=== PATIENT | female | born 1985 | race Caucasian/White ===

== ENCOUNTER 2017-07-01 07:42 | Inpatient (IN) | payer BC ==
[2017-07-01] MEDS ORDERED: Sodium Chloride 0.9% 1,000 ML IV ONE (08:32)
[2017-07-01] MEDS ORDERED: HYDROmorphone 0.5 MG/0.5 ML Syringe IVPUSH ONE (08:32)
[2017-07-01] MEDS ORDERED: Metoclopramide 10 MG/2 ML SDV IVPUSH ONE (08:32)
--- NOTE | 2017-07-01 08:35 | EDM.PDOC ---
ED HPI GENERAL MEDICAL PROBLEM - General Chief Complaint: Gastrointestinal Problem Stated Complaint: VOMITING Time Seen by Provider: 07/01/17 08:32 Source of Information: Reports: Patient History Limitations: Reports: No Limitations - History of Present Illness INITIAL COMMENTS - FREE TEXT/NARRATIVE: 31-year-old female presents the ED with reported diffuse upper abdominal pain primarily epigastric and right upper quadrant. She states she felt it coming on yesterday. Has been diagnosed with gastroparesis secondary to insulin- dependent diabetes. Previous investigations opf her gallbladder have been negative. She started vomiting during the night and continues to vomit here in the ED. Emesis is mostly clear but does have a slight biliary tinged. There is no he met emesis. She also comments that she's been having loose stools almost every time she vomits small quantities again no blood. No associated fever but does get chills with vomiting. She has not taken her insulin yet this morning. She did not hardly eat or drink much at all yesterday and of course can't keep anything down today. She is dizzy lightheaded with walking and standing. Onset: Gradual (started feeling ill yesterday but did not vomit until early hours of this morning.) Onset Date: 06/30/17 Duration: Hour(s): Location: Reports: Abdomen Quality: Reports: Ache, Pressure, Other Severity: Moderate Improves with: Reports: None Worsens with: Reports: Eating (were trying to drink) Context: Denies: Activity, Exercise, Lifting, Sick Contact, Trauma, Other Associated Symptoms: Reports: Fever/Chills, Nausea/Vomiting (chills with vomiting.), Weakness (generalized with lightheadedness and dizziness.). Denies : No Other Symptoms, Confusion, Chest Pain, Cough, cough w sputum, Diaphoresis, Headaches, Loss of Appetite, Malaise, Rash (intractable for the last 8 hours), Seizure, Shortness of Breath, Syncope Treatments ENVIRONMENTAL HEALTH TECHNICIAN: Reports: Other (see below) (none.) Upper Abdomen Pain Score (Numeric/FACES): 7 - Related Data Allergies Allergy/AdvReac Type Severity Reaction Status Date / Time Penicillins Allergy Cannot Verified 07/01/17 15:29 Remember Home Meds: Home Meds Insulin Aspart [Novolog] 1 - 10 unit SQ TID 07/01/17 [History] Insulin Glargine,Hum.Rec.Anlog [Toujeo Solostar] 6 units SUBCUT DAILY 07/01/17 [ History] Past Medical History Other HEENT History: wear glasses Endocrine/Metabolic History: Reports: Diabetes, Type I (insulin-dependent diabetic for 20 years.) - Past Surgical History GI Surgical History: Reports: Appendectomy Other GI Surgeries/Procedures: gastroparesis Social & Family History - Tobacco Use Smoking Status *Q: Current Every Day Smoker Years of Tobacco use: 1 Packs/Tins Daily: 1 - Caffeine Use Caffeine Use: Reports: Coffee - Recreational Drug Use Recreational Drug Use: No ED ROS GENERAL - Review of Systems Review Of Systems: See Below Constitutional: Reports: Chills, Malaise, Weakness, Fatigue, Decreased Appetite. Denies: Fever HEENT: Reports: No Symptoms Respiratory: Reports: No Symptoms Cardiovascular: Reports: No Symptoms Endocrine: Reports: Fatigue GI/Abdominal: Reports: Abdominal Pain, Diarrhea, Decreased Appetite (see history present illness), Nausea, Vomiting. Denies: Hematemesis, Hematochezia, Stool Incontinence : Reports: No Symptoms Musculoskeletal: Reports: No Symptoms Skin: Reports: Pallor Neurological: Reports: Dizziness Psychiatric: Reports: No Symptoms Hematologic/Lymphatic: Reports: No Symptoms Immunologic: Reports: No Symptoms ED EXAM, GI/ABD - Physical Exam Exam: See Below Exam Limited By: No Limitations General Appearance: Anxious (saliva and clear. Slight biliary tinge no blood.), Moderate Distress (acute onset of nausea and vomiting while in the examining room. Emesis produced was mostly ) Eyes: Bilateral: Normal Appearance Throat/Mouth: Other Head: Atraumatic, Normocephalic (tongue is dry and coated) Neck: Normal Inspection, Supple, Non-Tender, Full Range of Motion. No: Lymphadenopathy (L), Lymphadenopathy (R) Respiratory/Chest: Lungs Clear (mild tachypnea at rest.), Normal Breath Sounds, No Accessory Muscle Use, Chest Non-Tender, Respiratory Distress Cardiovascular: Normal Peripheral Pulses, Regular Rate, Rhythm, No Edema, No Gallop, No Murmur, No Rub GI/Abdominal Exam: Normal Bowel Sounds, Soft, No Distention, Guarding, Tender ( very hypoactive bowel sounds throughout.epigastrium and right upper quadrant with a positive Anderson sign.), Abnormal Bowel Sounds Back Exam: Normal Inspection, Full Range of Motion. No: CVA Tenderness (L), CVA Tenderness (R) Extremities: Normal Inspection, Normal Range of Motion, Non-Tender, No Pedal Edema Neurological: Alert, Oriented, CN II-XII Intact, Normal Cognition Psychiatric: Normal Affect, Normal Mood Skin Exam: Warm, Dry, Intact, Normal Color, No Rash Course - Vital Signs Last Recorded V/S: Last Vital Signs Temp 36.4 C 07/01/17 14:55 Pulse 80 07/01/17 15:12 Resp 13 07/01/17 15:12 BP 140/80 07/01/17 15:12 Pulse Ox 100 07/01/17 15:40 - Orders/Labs/Meds Orders: Active Orders 24 hr Category Date Time Status Blood Glucose Check, Bedside [RC] ONETIME Care 07/01/17 09:04 Active CULTURE URINE [RM] Stat Lab 07/01/17 09:25 Received Medication Orders Acetaminophen (Tylenol) 650 mg PO Q4H PRN PRN Reason: Pain (Mild 1-3)/fever Hydrocodone Bitart/Acetaminophen (Laurel 325-5 Mg) 1 tab PO Q4H PRN PRN Reason: Pain (moderate 4-6) Albuterol/Ipratropium (Duoneb 3.0-0.5 Mg/3 Ml) 3 ml NEB Q4H PRN PRN Reason: Shortness Of Breath/wheezing Dextrose/Water (Dextrose 50% In Water) 50 ml IVPUSH ASDIRECTED PRN PRN Reason: Hypoglycemia Sodium Chloride (Normal Saline) 1,000 mls @ 999 mls/hr IV ASDIRECTED NAHID Insulin Aspart (Novolog) 0 unit SUBCUT QIDACANDBED NAHID PRN Reason: Protocol Last Admin: 07/01/17 17:35 Dose: 2 unit Admin: 07/01/17 16:18 Dose: Insulin Detemir (Levemir) 6 unit SUBCUT DAILY [facility] Miscellaneous Information (Remove Patch) 1 ea TRDERM DAILY NAH[facility] Nicotine (Habitrol) 21 mg TRDERM DAILY [facility] Promethazine HCl (Phenergan) 12.5 mg IM Q6H PRN PRN Reason: Nausea/Vomiting Temazepam (Restoril) 7.5 mg PO BEDTIME PRN PRN Reason: Sleep Labs: Laboratory Tests 07/01/17 07/01/17 07/01/17 Range/Units 08:05 08:40 08:40 WBC 12.43 H (3.98-10.04) K/mm3 RBC 5.09 (3.98-5.22) M/mm3 Hgb 15.4 (11.2-15.7) gm/L Hct 44.9 (34.1-44.9) % MCV 88.2 (79.4-94.8) fl MCH 30.3 (25.6-32.2) pg MCHC 34.3 (32.2-35.5) g/dl RDW Std Deviation 45.1 (36.4-46.3) fL Plt Count 376 H (182-369) K/mm3 MPV 9.6 (9.4-12.3) fl Neutrophils % (Manual) 79 H (40-60) % Band Neutrophils % 0 (0-10) % Lymphocytes % (Manual) 18 L (20-40) % Atypical Lymphs % 0 % Monocytes % (Manual) 0 L (2-10) % Eosinophils % (Manual) 2 (0.7-5.8) % Basophils % (Manual) 1 (0.1-1.2) Platelet Estimate Adequate Plt Morphology Comment Normal RBC Morph Comment Normal Sodium 139 (136-145) mEq/L Potassium 3.9 (3.5-5.1) mEq/L Chloride 102 (98-107) mEq/L Carbon Dioxide 18 L (21-32) mEq/L Anion Gap 22.9 H (5-15) BUN 6 L (7-18) mg/dL Creatinine 0.8 (0.55-1.02) mg/dL Est Cr Clr Drug Dosing 93.63 mL/min Estimated GFR (MDRD) > 60 (>60) mL/min BUN/Creatinine Ratio 7.5 L (14-18) Glucose 204 H (74-106) mg/dL POC Glucose 147 H (70-105) mg/dL Calcium 10.1 (8.5-10.1) mg/dL Magnesium 1.8 (1.8-2.4) mg/dl Total Bilirubin 0.8 (0.2-1.0) mg/dL AST 78 H (15-37) U/L ALT 96 H (14-59) U/L Alkaline Phosphatase 58 (46-116) U/L C-Reactive Protein (<1.0) mg/dL Total Protein 8.4 H (6.4-8.2) g/dl Albumin 4.5 (3.4-5.0) g/dl Globulin 3.9 gm/dL Albumin/Globulin Ratio 1.2 (1-2) Lipase 72 L (73-393) U/L HCG, Qual (NEGATIVE) Urine Color (Yellow) Urine Appearance (Clear) Urine pH (5.0-8.0) Ur Specific Termo (1.005-1.030) Urine Protein (Negative) Urine Glucose (UA) (Negative) Urine Ketones (Negative) Urine Occult Blood (Negative) Urine Nitrite (Negative) Urine Bilirubin (Negative) Urine Urobilinogen (0.2-1.0) Ur Leukocyte Esterase (Negative) Urine RBC (0-5) /hpf Urine WBC (0-5) /hpf Ur Epithelial Cells (0-5) /hpf Amorphous Sediment (NOT SEEN) /hpf Urine Bacteria (FEW) /hpf Urine Mucus (FEW) /hpf Urine Opiates Screen (NEGATIVE) Ur Buprenorphine Scrn (NEGATIVE) Ur Oxycodone Screen (NEGATIVE) Urine Methadone Screen (NEGATIVE) Ur Propoxyphene Screen (NEGATIVE) Ur Barbiturates Screen (NEGATIVE) Ur Tricyclics Screen (NEGATIVE) Ur Phencyclidine Scrn (NEGATIVE) Ur Amphetamine Screen (NEGATIVE) U Methamphetamines Scrn (NEGATIVE) U Benzodiazepines Scrn (NEGATIVE) U Cocaine Metab Screen (NEGATIVE) U Marijuana (THC) Screen (NEGATIVE) Ketones (0.0-0.3) mM 07/01/17 07/01/17 07/01/17 Range/Units 08:40 08:40 08:40 WBC (3.98-10.04) K/mm3 RBC (3.98-5.22) M/mm3 Hgb (11.2-15.7) gm/L Hct (34.1-44.9) % MCV (79.4-94.8) fl MCH (25.6-32.2) pg MCHC (32.2-35.5) g/dl RDW Std Deviation (36.4-46.3) fL Plt Count (182-369) K/mm3 MPV (9.4-12.3) fl Neutrophils % (Manual) (40-60) % Band Neutrophils % (0-10) % Lymphocytes % (Manual) (20-40) % Atypical Lymphs % % Monocytes % (Manual) (2-10) % Eosinophils % (Manual) (0.7-5.8) % Basophils % (Manual) (0.1-1.2) Platelet Estimate Plt Morphology Comment RBC Morph Comment Sodium (136-145) mEq/L Potassium (3.5-5.1) mEq/L Chloride (98-107) mEq/L Carbon Dioxide (21-32) mEq/L Anion Gap (5-15) BUN (7-18) mg/dL Creatinine (0.55-1.02) mg/dL Est Cr Clr Drug Dosing mL/min Estimated GFR (MDRD) (>60) mL/min BUN/Creatinine Ratio (14-18) Glucose (74-106) mg/dL POC Glucose (70-105) mg/dL Calcium (8.5-10.1) mg/dL Magnesium (1.8-2.4) mg/dl Total Bilirubin (0.2-1.0) mg/dL AST (15-37) U/L ALT (14-59) U/L Alkaline Phosphatase (46-116) U/L C-Reactive Protein < 0.2 (<1.0) mg/dL Total Protein (6.4-8.2) g/dl Albumin (3.4-5.0) g/dl Globulin gm/dL Albumin/Globulin Ratio (1-2) Lipase (73-393) U/L HCG, Qual Negative (NEGATIVE) Urine Color (Yellow) Urine Appearance (Clear) Urine pH (5.0-8.0) Ur Specific Termo (1.005-1.030) Urine Protein (Negative) Urine Glucose (UA) (Negative) Urine Ketones (Negative) Urine Occult Blood (Negative) Urine Nitrite (Negative) Urine Bilirubin (Negative) Urine Urobilinogen (0.2-1.0) Ur Leukocyte Esterase (Negative) Urine RBC (0-5) /hpf Urine WBC (0-5) /hpf Ur Epithelial Cells (0-5) /hpf Amorphous Sediment (NOT SEEN) /hpf Urine Bacteria (FEW) /hpf Urine Mucus (FEW) /hpf Urine Opiates Screen (NEGATIVE) Ur Buprenorphine Scrn (NEGATIVE) Ur Oxycodone Screen (NEGATIVE) Urine Methadone Screen (NEGATIVE) Ur Propoxyphene Screen (NEGATIVE) Ur Barbiturates Screen (NEGATIVE) Ur Tricyclics Screen (NEGATIVE) Ur Phencyclidine Scrn (NEGATIVE) Ur Amphetamine Screen (NEGATIVE) U Methamphetamines Scrn (NEGATIVE) U Benzodiazepines Scrn (NEGATIVE) U Cocaine Metab Screen (NEGATIVE) U Marijuana (THC) Screen (NEGATIVE) Ketones 2.7 (0.0-0.3) mM 07/01/17 07/01/17 07/01/17 Range/Units 09:25 09:45 11:43 WBC (3.98-10.04) K/mm3 RBC (3.98-5.22) M/mm3 Hgb (11.2-15.7) gm/L Hct (34.1-44.9) % MCV (79.4-94.8) fl MCH (25.6-32.2) pg MCHC (32.2-35.5) g/dl RDW Std Deviation (36.4-46.3) fL Plt Count (182-369) K/mm3 MPV (9.4-12.3) fl Neutrophils % (Manual) (40-60) % Band Neutrophils % (0-10) % Lymphocytes % (Manual) (20-40) % Atypical Lymphs % % Monocytes % (Manual) (2-10) % Eosinophils % (Manual) (0.7-5.8) % Basophils % (Manual) (0.1-1.2) Platelet Estimate Plt Morphology Comment RBC Morph Comment Sodium (136-145) mEq/L Potassium (3.5-5.1) mEq/L Chloride (98-107) mEq/L Carbon Dioxide (21-32) mEq/L Anion Gap (5-15) BUN (7-18) mg/dL Creatinine (0.55-1.02) mg/dL Est Cr Clr Drug Dosing mL/min Estimated GFR (MDRD) (>60) mL/min BUN/Creatinine Ratio (14-18) Glucose (74-106) mg/dL POC Glucose 193 H (70-105) mg/dL Calcium (8.5-10.1) mg/dL Magnesium (1.8-2.4) mg/dl Total Bilirubin (0.2-1.0) mg/dL AST (15-37) U/L ALT (14-59) U/L Alkaline Phosphatase (46-116) U/L C-Reactive Protein (<1.0) mg/dL Total Protein (6.4-8.2) g/dl Albumin (3.4-5.0) g/dl Globulin gm/dL Albumin/Globulin Ratio (1-2) Lipase (73-393) U/L HCG, Qual (NEGATIVE) Urine Color Dark yellow (Yellow) Urine Appearance Turbid H (Clear) Urine pH 6.0 (5.0-8.0) Ur Specific Termo > or = 1.030 (1.005-1.030) Urine Protein 1+ H (Negative) Urine Glucose (UA) Negative (Negative) Urine Ketones 3+ H (Negative) Urine Occult Blood Trace-intact H (Negative) Urine Nitrite Negative (Negative) Urine Bilirubin 1+ H (Negative) Urine Urobilinogen 0.2 (0.2-1.0) Ur Leukocyte Esterase Negative (Negative) Urine RBC 0-5 (0-5) /hpf Urine WBC 5-10 H (0-5) /hpf Ur Epithelial Cells 50-75 H (0-5) /hpf Amorphous Sediment Few H (NOT SEEN) /hpf Urine Bacteria Many H (FEW) /hpf Urine Mucus Not seen (FEW) /hpf Urine Opiates Screen Negative (NEGATIVE) Ur Buprenorphine Scrn Negative (NEGATIVE) Ur Oxycodone Screen Negative (NEGATIVE) Urine Methadone Screen Negative (NEGATIVE) Ur Propoxyphene Screen Negative (NEGATIVE) Ur Barbiturates Screen Negative (NEGATIVE) Ur Tricyclics Screen Negative (NEGATIVE) Ur Phencyclidine Scrn Negative (NEGATIVE) Ur Amphetamine Screen Negative (NEGATIVE) U Methamphetamines Scrn Negative (NEGATIVE) U Benzodiazepines Scrn Negative (NEGATIVE) U Cocaine Metab Screen Negative (NEGATIVE) U Marijuana (THC) Screen Presumptive positive H (NEGATIVE) Ketones (0.0-0.3) mM 07/01/17 Range/Units 13:41 WBC (3.98-10.04) K/mm3 RBC (3.98-5.22) M/mm3 Hgb (11.2-15.7) gm/L Hct (34.1-44.9) % MCV (79.4-94.8) fl MCH (25.6-32.2) pg MCHC (32.2-35.5) g/dl RDW Std Deviation (36.4-46.3) fL Plt Count (182-369) K/mm3 MPV (9.4-12.3) fl Neutrophils % (Manual) (40-60) % Band Neutrophils % (0-10) % Lymphocytes % (Manual) (20-40) % Atypical Lymphs % % Monocytes % (Manual) (2-10) % Eosinophils % (Manual) (0.7-5.8) % Basophils % (Manual) (0.1-1.2) Platelet Estimate Plt Morphology Comment RBC Morph Comment Sodium (136-145) mEq/L Potassium (3.5-5.1) mEq/L Chloride (98-107) mEq/L Carbon Dioxide (21-32) mEq/L Anion Gap (5-15) BUN (7-18) mg/dL Creatinine (0.55-1.02) mg/dL Est Cr Clr Drug Dosing mL/min Estimated GFR (MDRD) (>60) mL/min BUN/Creatinine Ratio (14-18) Glucose (74-106) mg/dL POC Glucose 200 H (70-105) mg/dL Calcium (8.5-10.1) mg/dL Magnesium (1.8-2.4) mg/dl Total Bilirubin (0.2-1.0) mg/dL AST (15-37) U/L ALT (14-59) U/L Alkaline Phosphatase (46-116) U/L C-Reactive Protein (<1.0) mg/dL Total Protein (6.4-8.2) g/dl Albumin (3.4-5.0) g/dl Globulin gm/dL Albumin/Globulin Ratio (1-2) Lipase (73-393) U/L HCG, Qual (NEGATIVE) Urine Color (Yellow) Urine Appearance (Clear) Urine pH (5.0-8.0) Ur Specific Termo (1.005-1.030) Urine Protein (Negative) Urine Glucose (UA) (Negative) Urine Ketones (Negative) Urine Occult Blood (Negative) Urine Nitrite (Negative) Urine Bilirubin (Negative) Urine Urobilinogen (0.2-1.0) Ur Leukocyte Esterase (Negative) Urine RBC (0-5) /hpf Urine WBC (0-5) /hpf Ur Epithelial Cells (0-5) /hpf Amorphous Sediment (NOT SEEN) /hpf Urine Bacteria (FEW) /hpf Urine Mucus (FEW) /hpf Urine Opiates Screen (NEGATIVE) Ur Buprenorphine Scrn (NEGATIVE) Ur Oxycodone Screen (NEGATIVE) Urine Methadone Screen (NEGATIVE) Ur Propoxyphene Screen (NEGATIVE) Ur Barbiturates Screen (NEGATIVE) Ur Tricyclics Screen (NEGATIVE) Ur Phencyclidine Scrn (NEGATIVE) Ur Amphetamine Screen (NEGATIVE) U Methamphetamines Scrn (NEGATIVE) U Benzodiazepines Scrn (NEGATIVE) U Cocaine Metab Screen (NEGATIVE) U Marijuana (THC) Screen (NEGATIVE) Ketones (0.0-0.3) mM Meds: Medications Generic Name Dose Route Start Last Admin Trade Name Freq PRN Reason Stop Dose Admin Acetaminophen 650 mg 07/01/17 15:39 Tylenol PO Q4H PRN Pain (Mild 1-3)/fever Hydrocodone Bitart/Acetaminophen 1 tab 07/01/17 15:39 Laurel 325-5 Mg PO Q4H PRN Pain (moderate 4-6) Albuterol/Ipratropium 3 ml 07/01/17 15:39 Duoneb 3.0-0.5 Mg/3 Ml NEB Q4H PRN Shortness Of Breath/wheezing Dextrose/Water 50 ml 07/01/17 15:55 Dextrose 50% In Water IVPUSH ASDIRECTED PRN Hypoglycemia Sodium Chloride 1,000 mls @ 999 mls/hr 07/01/17 18:00 Normal Saline IV ASDIRECTED NAHID Insulin Aspart 0 unit 07/01/17 16:00 07/01/17 17:35 Novolog SUBCUT 2 unit QIDACANDBED NAHID Administration Protocol Insulin Detemir 6 unit 07/02/17 09:00 Levemir SUBCUT DAILY [facility] Miscellaneous Information 1 ea 07/02/17 09:00 Remove Patch TRDERM DAILY [facility] Nicotine 21 mg 07/01/17 17:30 Habitrol TRDERM DAILY NAHID Promethazine HCl 12.5 mg 07/01/17 15:52 Phenergan IM Q6H PRN Nausea/Vomiting Temazepam 7.5 mg 07/01/17 15:39 Restoril PO BEDTIME PRN Sleep Discontinued Medications Generic Name Dose Route Start Last Admin Trade Name Freq PRN Reason Stop Dose Admin Diphenhydramine HCl 25 mg 07/01/17 10:24 07/01/17 10:34 Benadryl IVPUSH 07/01/17 10:25 25 mg ONETIME ONE Administration Hydromorphone HCl 0.5 mg 07/01/17 08:32 07/01/17 09:09 Dilaudid IVPUSH 07/01/17 08:33 0.5 mg ONETIME ONE Administration Sodium Chloride 1,000 mls @ 999 mls/hr 07/01/17 08:32 07/01/17 09:55 Normal Saline IV 07/01/17 09:32 999 mls/hr ONETIME ONE Administration Sodium Chloride 1,000 mls @ 999 mls/hr 07/01/17 11:45 07/01/17 11:45 Normal Saline IV 999 mls/hr ASDIRECTED NAHID Administration Sodium Chloride Confirm 07/01/17 11:44 07/01/17 11:45 Normal Saline Administered 07/01/17 11:45 Not Given Dose 1,000 mls @ as directed .ROUTE .STK-MED ONE Levofloxacin/Dextrose 750 mg/ 150 mls @ 100 mls/hr 07/01/17 12:06 07/01/17 12 :52 Premix IV 07/01/17 13:35 100 mls/hr ONETIME ONE Administration Influenza Virus Vaccine 60 mcg 07/01/17 16:15 Flulaval Quad [id number] IM 07/01/17 16:16 .ONCE ONE Insulin Detemir 4 unit 07/01/17 13:42 07/01/17 14:47 Levemir SUBCUT 07/01/17 13:43 4 unit ONETIME ONE Administration Metoclopramide HCl 7.5 mg 07/01/17 08:32 07/01/17 09:05 Reglan IVPUSH 07/01/17 08:33 7.5 mg ONETIME ONE Administration Ondansetron HCl 4 mg 07/01/17 10:24 07/01/17 10:34 Zofran IVPUSH 07/01/17 10:25 4 mg ONETIME ONE Administration Ondansetron HCl 4 mg 07/01/17 11:58 07/01/17 12:04 Zofran IVPUSH 07/01/17 11:59 4 mg ONETIME ONE Administration Pantoprazole Sodium 40 mg 07/01/17 17:26 Protonix Iv IVPUSH 07/01/17 17:27 ONETIME ONE Promethazine HCl 12.5 mg 07/01/17 15:52 07/01/17 16:14 Phenergan IM 07/01/17 15:53 12.5 mg ONETIME ONE Administration - Radiology Interpretation Free Text/Narrative:: 31-year-old female presents to the ED with reports of intractable nausea and vomiting for the last 8 hours. No hematemesis. Associated loose watery stools with vomiting. No blood in the stool. No associated fever or chills. She reports this happens to her quite frequently as she has been diagnosed with gastroparesis in the past and will continue to vomit for a period of time. She reports no relief of the abdominal discomfort after vomiting. Which is bringing up now is mostly saliva and slight biliary tinged secretions. Exam reveals her to be afebrile with stable vital signs. The abdomen reveals marked tenderness in the epigastrium and the right upper quadrant suggestive of possible biliary tree disease. Previous surgery is that of an appendectomy only. She is an insulin-dependent diabetic and has not yet taken her insulin this morning. She' s not been able to eat well since yesterday. Blood sugar at bedside is 147. Plan IV normal saline at open. Reglan 7.5 mg IV with Dilaudid 0.5 mg IV for pain relief. Routine labs to include a lipase and urinalysis. One view of the abdomen will be obtained once we are sure that she is not . - Re-Assessments/Exams Free Text/Narrative Re-Assessment/Exam: 07/01/17 09:36 Labs reveal an elevated white count at 12.43. Differential is pending. Hemoglobin is 15.4 with hematocrit of 44.9. Platelets are normal 3 years 76,000. Chemistry shows a sodium of 139 potassium of 3.9. Toward 102 bicarbonate 18 which slightly low. Anion gap is markedly elevated at 22.9. BUNs 6 creatinine is 0.8. Glucose in the lab is 204 in the department it was 147 at the bedside. AST is 78 ELT is 96 total protein is elevated at 8.4 suggesting some degree of hemoconcentration. Lipase is 72 hCG is negative. [employer] was able to establish an IV and IV is currently running at open.tones will be ordered. It appears she is likely going to need a couple of liters of IV fluid to reverse her anion gap elevation. 07/01/17 10:14 KUB has been completed and reveals partially of gas throughout the small bowel and large bowel. There is a small amount of stool within the descending colon. Several in no signs of bowel obstruction. 07/01/17 10:25patient remains quite nauseated. From 4 mg IV with Benadryl 25 mg IV to stave off any dystonic reaction from the combination of Reglan and Zofran. 07/01/17 11:59 patient reported only vomited a large amount of clear emesis again in the bathroom. Whether this is water or saliva is unclear to me. The nurse appreciates no biliary tinge or blood.will repeat Zofran 4 mg IV. Blood sugar at 1143 was reported to be 193. Serum ketones are elevated at 2.7. 07/01/17 12:04 urinalysis shows 3+ ketones. Nitrate negative leukocyte esterase negative but 5-10+ cells per per field and 50-75 epithelial cells suggestive of possible pyelonephritis. There are many bacteria in the urine appreciated. Plan I am going to give her a dose of Levaquin 750 mg while in the ED.urine culture has been ordered 07/01/17 13:32 patient is now had some loose stool as well. She is having significant back pain and upper abdominal pain. She continues to feel nauseated and has vomited clearish fluid on 2 further occasions. There are therefore will arrange for her to be admitted to the hospital. She has type I diabetes insulin controlled with Toujeo 6units s/c in am and Novolog with meals.I will have another blood sugar checked at the bedside now. Plan will then be to contact Dr. Salmon for admission to the hospital. 07/01/17 13:43 current blood sugar is 200. I will give her 4 units of Levemir insulin as we do not have Toujeo in the hospital. 07/01/17 13:57 Dr Salmon has accepted the admission to the med surgery floor on telemetry. Departure - Departure Time of Disposition: 13:57 Disposition: Admitted As Inpatient 64 Condition: Fair Clinical Impression: Insulin dependent diabetes mellitus, Metabolic acidosis Intractable nausea and vomiting Qualifiers: Vomiting type: unspecified Qualified Code(s): R11.2 - Nausea with vomiting, unspecified Diarrhea Qualifiers: Diarrhea type: unspecified type Qualified Code(s): R19.7 - Diarrhea, unspecified Urinary tract infection Qualifiers: Urinary tract infection type: acute cystitis Hematuria presence: with hematuria Qualified Code(s): N30.01 - Acute cystitis with hematuria - Discharge Information - My Orders Last 24 Hours: My Active Orders 07/01/17 09:04 Blood Glucose Check, Bedside [RC] ONETIME 07/01/17 09:25 CULTURE URINE [] Stat - Assessment/Plan Last 24 Hours: My Active Orders 07/01/17 09:04 Blood Glucose Check, Bedside [RC] ONETIME 07/01/17 09:25 CULTURE URINE [] Stat
--- NOTE | 2017-07-01 09:26 | PCM.SN ---
- Free Text/Narrative Note: Called for difficult IV start in ER. 20 Gauge attempted x2 left forearm. Good blood return, labs drawn, IV flushed and swelling was noted. IV removed. 22 gauge IV started right wrist. Lidocaine used for all attempts.
[2017-07-01] MEDS ORDERED: Ondansetron 4 MG/2 ML SDV IVPUSH ONE ×2 (10:24→11:58)
[2017-07-01] MEDS ORDERED: diphenhydrAMINE 50 MG/ML SDV IVPUSH ONE (10:24)
[2017-07-01] MEDS ORDERED: Sodium Chloride 0.9% 1,000 ML ONE (11:44)
[2017-07-01] MEDS ORDERED: Sodium Chloride 0.9% 1,000 ML IV SCH ×2 (11:45→18:00)
--- NOTE | 2017-07-01 12:00 | CR ---
Abdomen: Supine view of the abdomen was obtained. Comparison: No previous study. Calcifications are seen within the pelvis most likely due to phleboliths. Bowel gas pattern is normal. No abnormal soft tissue densities are seen. Bony structures are unremarkable. Impression: 1. Calcifications within the pelvis likely due to phleboliths. 2. Supine abdominal x-ray is otherwise unremarkable. Diagnostic code #2
[2017-07-01] MEDS ORDERED: Levofloxacin/Dextrose 5%-Water 750 MG in Premix Bag 1 BAG IV ONE (12:06)
[2017-07-01] MEDS ORDERED: Insulin Detemir 100 Units/ML 3 ML Pen SUBCUT ONE (13:42)
[2017-07-01] MEDS ORDERED: Acetaminophen 325 MG Tab PO PRN (15:39)
[2017-07-01] MEDS ORDERED: Acetaminophen/HYDROcodone 325-5 MG Tab PO PRN (15:39)
[2017-07-01] MEDS ORDERED: Albuterol/Ipratropium 3.0-0.5 MG/3 ML Neb Soln NEB PRN (15:39)
[2017-07-01] MEDS ORDERED: Temazepam 7.5 MG Cap PO PRN (15:39)
[2017-07-01] MEDS ORDERED: Promethazine 25 MG/ML SDV IM PRN (15:52)
[2017-07-01] MEDS ORDERED: Promethazine 25 MG/ML SDV IM ONE (15:52)
[2017-07-01] MEDS ORDERED: 50% Dextrose in Water 50 ML Syringe IVPUSH PRN (15:55)
[2017-07-01] MEDS ORDERED: FLU Vacc QS 2017-18 (6mos UP)/PF 60 MCG/0.5 ML Syringe IM ONE (16:15)
[2017-07-01] MEDS: Insulin Aspart 100 Units/ML 3 ML Pen SUBCUT SCH ×3 (16:18→22:22)
--- NOTE | 2017-07-01 16:24 | PCM.HP ---
H&P History of Present Illness - General Date of Service: 07/01/17 Admit Problem/Dx: Admission Diagnosis/Problem Admission Diagnosis/Problem Nausea and vomiting Source of Information: Patient, Old Records, Provider, RN, RN Notes Reviewed History Limitations: Reports: No Limitations - History of Present Illness Initial Comments - Free Text/Narative: Koki Marina is a 31 year old female patient who presented to our ED today with complaints of right upper abdominal and epigastric pain. She reports symptoms started yesterday. She recently moved here from [place] where she was diagnosed with gastroparesis secondary to type I diabetes. Vomiting started last night and continued today. Emisis was reported as clear but slightly biliary tinged. She reports diarrhea accompanies her vomiting. No blood in either. She did not take her usual insulin this AM. She has reportedly hardly ate or drank anything today or yesterday. Vital signs in the ER were temperature 36.7 Celsius pulse 83. Respirations 12. BP 144/100. Pulse ox 99%. Labs were obtained and revealed a slightly elevated white blood cell count at 12.43. Hemoglobin normal at 15.4. Platelet count high at 376. No bandemia. Sodium was normal at 139. Potassium normal at 3.9. Chloride normal at 102. From an accident low at 18. Anion gap very high at 22.9. BUN low at 6. Creatinine normal at 0.8. EGFR normal at greater than 60. Glucose was high at 204. Magnesium was on the low end of normal at 1.8. Liver enzymes AST was elevated at 78. AST was elevated at 96. Alkaline phosphatase was normal at 58. Albumin was normal at 4.5. Lipase was just slightly low at 72. HCG was negative. Urine revealed an elevated specific gravity. Protein was 1+. Ketones were 3+. Urine nitrite and leukocyte esterase were both negative. There was few amorphus sediment and many urine bacteria. Urine ketones were elevated at 2.7. She was started on a fluid bolus. Diphenhydramine as well as Reglan were given. Zofran was given. Reglan and Zofran had little effect on patient's nausea and vomiting. She is also given 4 units of Levemir as she had not taken her daily insulin. She was also started on 750 mg of Levaquin. She was afebrile and vital signs were stable. KUB was obtained and reveals partial gas throughout small bowel and large bowel. A small amount of stool is noted in the descending colon. There were no signs of bowel obstruction. As noted above, she carries a hx of Type I diabetes and gastroparesis. She has had a prior appendectomy. She does vape and utilizes recreational marijuana. She was subsequently admitted to the [facility] floor on telemetry. She is a full code. She is a patient of Dr. Essie Skaggs at [facility] here in [place]. Upper Abdomen Pain Score (Numeric/FACES): 5 - Related Data Allergies/Adverse Reactions: Allergies Allergy/AdvReac Type Severity Reaction Status Date / Time Penicillins Allergy Cannot Verified 07/01/17 15:29 Remember Home Medications: Home Meds Insulin Aspart [Novolog] 1 - 10 unit SQ TID 07/01/17 [History] Insulin Glargine,Hum.Rec.Anlog [Toujeo Solostar] 6 units SUBCUT DAILY 07/01/17 [ History] Past Medical History HEENT History: Reports: Other (See Below) Other HEENT History: wear glasses Cardiovascular History: Reports: None Respiratory History: Reports: None Gastrointestinal History: Reports: Other (See Below) Other Gastrointestinal History: gastroparesis Genitourinary History: Reports: None 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: 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: None Musculoskeletal History: Reports: None Neurological History: Reports: None Psychiatric History: Reports: None Endocrine/Metabolic History: Reports: Diabetes, Type I Hematologic History: Reports: None Immunologic History: Reports: None Oncologic (Cancer) History: Reports: None Dermatologic History: Reports: None - Past Surgical History HEENT Surgical History: Reports: None Cardiovascular Surgical History: Reports: None Respiratory Surgical History: Reports: None GI Surgical History: Reports: Appendectomy Female Surgical History: Reports: None Endocrine Surgical History: Reports: None Neurological Surgical History: Reports: None Musculoskeletal Surgical History: Reports: None Oncologic Surgical History: Reports: None Dermatological Surgical History: Reports: None Social & Family History - Family History Family Medical History: Noncontributory - Tobacco Use Smoking Status *Q: Current Every Day Smoker Years of Tobacco use: 15 Packs/Tins Daily: 0 - Caffeine Use Caffeine Use: Reports: Coffee - Recreational Drug Use Recreational Drug Use: Yes Drug Use in Last 12 Months: Yes Recreational Drug Type: Reports: Marijuana/Hashish Recreational Drug Use Frequency: Daily H&P Review of Systems - Review of Systems: Review Of Systems: See Below General: Reports: Chills, Malaise, Weakness, Fatigue, Decreased Appetite. Denies: Fever, Night Sweats HEENT: Reports: No Symptoms, Glasses, Sore Throat (from vomiting ), Other ( photophobia from nausea ). Denies: Ear Pain, Eye Pain, Headaches, Post Nasal Drip Pulmonary: Reports: No Symptoms. Denies: Shortness of Breath, Wheezing, Pleuritic Chest Pain, Cough Cardiovascular: Reports: No Symptoms. Denies: Chest Pain, Palpitations, Dyspnea on Exertion, Edema, Lightheadedness Gastrointestinal: Reports: Abdominal Pain (mild ), Diarrhea ("unable to go because I am empty "), Decreased Appetite, Nausea, Vomiting. Denies: Black Stool, Bloody Stool, Constipation, Difficulty Swallowing, Distension, Hematemesis, Hematochezia, Melena, Stool Incontinence Genitourinary: Reports: No Symptoms. Denies: Dysuria, Frequency, Burning, Pain , Urgency Musculoskeletal: Reports: No Symptoms. Denies: Arm Pain, Joint Pain Skin: Reports: No Symptoms Psychiatric: Reports: No Symptoms Neurological: Reports: Dizziness, Weakness. Denies: Confusion, Headache, Numbness, Seizure, Syncope, Tingling, Trouble Speaking, Change in Speech, Gait Disturbance Hematologic/Lymphatic: Reports: No Symptoms Immunologic: Reports: No Symptoms Exam - Exam Exam: See Below - Vital Signs Vital Signs: Last Vital Signs Temp 98.1 F 07/01/17 07:54 Pulse 80 07/01/17 15:12 Resp 13 07/01/17 15:12 BP 140/80 07/01/17 15:12 Pulse Ox 99 07/01/17 15:12 Weight: 134 lb 11.2 oz - Exam Quality Assessment: DVT Prophylaxis General: Alert, Oriented, Cooperative, Moderate Distress HEENT: Conjunctiva Clear, Hearing Intact, Mucosa Moist & [place], Nares Patent, Posterior Pharynx Clear, Pupils Equal, Pupils Reactive, Glasses Neck: Supple, Trachea Midline. No: Lymphadenopathy, JVD Lungs: Clear to Auscultation, Normal Respiratory Effort Cardiovascular: Regular Rate, Regular Rhythm, Normal S1, Normal S2 GI/Abdominal Exam: Soft, Guarding, Tender (epigstrium and RUQ), Abnormal Bowel Sounds (hypoactive ). No: No Organomegaly, No Distention, No Abnormal Bruit, No Mass (Female) Exam: Deferred Rectal (Female) Exam: Deferred Back Exam: Normal Inspection, Full Range of Motion. No: CVA Tenderness (L), CVA Tenderness (R) Extremities: Normal Inspection, Normal Range of Motion, Non-Tender, No Pedal Edema, Normal Capillary Refill Peripheral Pulses: 2+: Radial (L), Radial (R), Posterior Tibial (L), Posterior Tibial (R), Dorsalis Pedis (L), Dorsalis Pedis (R) Skin: Warm, Dry, Intact. No: Rash Neurological: Cranial Nerves Intact (Grossly ), Normal Speech, Normal Tone, Sensation Intact Neuro Extensive - Mental Status: Alert, Oriented x3, Normal Mood/Affect, Normal Cognition, Memory Intact Neuro Extensive - Motor, Sensory, Reflexes: CN II-XII Intact (grossly ), Normal Gait Psychiatric: Alert, Normal Affect, Normal Mood Physical Exam Comments:: Patient examined while lying in bed. Room is darkened and patient reports that helps with nausea. 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 Status: Acute Priority: High Current Visit: Yes (3) Intractable nausea and vomiting SNOMED Code(s): 018116780 ICD Code: R11.2 - NAUSEA WITH VOMITING, UNSPECIFIED Status: Acute Priority: High Current Visit: Yes Qualifiers: Vomiting type: unspecified Qualified Code(s): R11.2 - Nausea with vomiting , unspecified (4) Metabolic acidosis SNOMED Code(s): 10093500 ICD Code: E87.2 - ACIDOSIS Status: Acute Priority: High Current Visit: Yes (5) Urinary tract infection SNOMED Code(s): 27687525 ICD Code: N39.0 - URINARY TRACT INFECTION, SITE NOT SPECIFIED Status: Acute Priority: Medium Current Visit: Yes Qualifiers: Urinary tract infection type: acute cystitis Hematuria presence: with hematuria Qualified Code(s): N30.01 - Acute cystitis with hematuria Problem List Initiated/Reviewed/Updated: Yes Orders Last 24hrs: Active Orders 24 hr Category Date Time Status Ambulate [RC] PER UNIT ROUTINE Care 07/01/17 15:40 Active Antiembolic Devices [RC] PER UNIT ROUTINE Care 07/01/17 15:48 Active Blood Glucose Check, Bedside [RC] QIDACANDBED Care 07/01/17 15:39 Active Intake and Output [RC] QSHIFT Care 07/01/17 15:40 Active Oxygen Therapy [RC] PRN Care 07/01/17 15:40 Active RT Aerosol Therapy [RC] ASDIRECTED Care 07/01/17 15:48 Active Up With Assistance [RC] ASDIRECTED Care 07/01/17 15:39 Active VTE/DVT Education [RC] PER UNIT ROUTINE Care 07/01/17 15:40 Active Vital Signs [RC] Q4H Care 07/01/17 15:40 Active Consult to Case Management [CONS] Routine Cons 07/01/17 15:39 Active Consult to Diabetic Nurse Specialist [CONS] Routine Cons 07/01/17 15:39 Active Consult to Musical Instrument Maker [CONS] Routine Cons 07/01/17 15:39 Active Clear Liquid Diet [DIET] Diet 07/01/17 Dinner Active BASIC METABOLIC PANEL,BMP [CHEM] AM Lab 07/02/17 05:11 Ordered BMP [BASIC METABOLIC PANEL,BMP] [CHEM] Routine Lab 07/01/17 18:00 Ordered C-REACTIVE PROTEIN [CHEM] Routine Lab 07/01/17 15:39 Ordered CBC WITH AUTO DIFF [HEME] AM Lab 07/02/17 05:11 Ordered MAGNESIUM [CHEM] AM Lab 07/02/17 05:11 Ordered Acetaminophen [Tylenol] Med 07/01/17 15:39 Active 650 mg PO Q4H PRN Acetaminophen/HYDROcodone [Kelso 325-5 MG] Med 07/01/17 15:39 Active 1 tab PO Q4H PRN Albuterol/Ipratropium [DuoNeb 3.0-0.5 MG/3 ML] Med 07/01/17 15:39 Active 3 ml NEB Q4H PRN Dextrose 50% in Water Med 07/01/17 15:55 Active 50 ml IVPUSH ASDIRECTED PRN Insulin Aspart [NovoLOG] Med 07/01/17 16:00 Active See Protocol SUBCUT QIDACANDBED Insulin Detemir [Levemir] Med 07/02/17 09:00 Active 6 unit SUBCUT DAILY Promethazine [Phenergan] Med 07/01/17 15:52 Active 12.5 mg IM Q6H PRN Temazepam [Restoril] Med 07/01/17 15:39 Active 7.5 mg PO BEDTIME PRN Antiembolic Hose [OM.PC] Per Unit Routine Oth 07/01/17 15:41 Ordered Sequential Compression Device [OM.PC] Per Unit Routine Oth 07/01/17 15:41 Ordered Resuscitation Status Routine Resus Stat 07/01/17 15:39 Ordered Medication Orders Acetaminophen (Tylenol) 650 mg PO Q4H PRN PRN Reason: Pain (Mild 1-3)/fever Hydrocodone Bitart/Acetaminophen (Kelso 325-5 Mg) 1 tab PO Q4H PRN PRN Reason: Pain (moderate 4-6) Albuterol/Ipratropium (Duoneb 3.0-0.5 Mg/3 Ml) 3 ml NEB Q4H PRN PRN Reason: Shortness Of Breath/wheezing Dextrose/Water (Dextrose 50% In Water) 50 ml IVPUSH ASDIRECTED PRN PRN Reason: Hypoglycemia Sodium Chloride (Normal Saline) 1,000 mls @ 999 mls/hr IV ASDIRECTED [facility] Last Admin: 07/01/17 11:45 Dose: 999 mls/hr Insulin Aspart (Novolog) 0 unit SUBCUT QIDACANDBED NAHID PRN Reason: Protocol Last Admin: 07/01/17 16:18 Dose: Insulin Detemir (Levemir) 6 unit SUBCUT DAILY [facility] Promethazine HCl (Phenergan) 12.5 mg IM Q6H PRN PRN Reason: Nausea/Vomiting Temazepam (Restoril) 7.5 mg PO BEDTIME PRN PRN Reason: Sleep Assessment/Plan Comment:: I/P: Acute: Intractable nausea and vomiting -Diagnosed with gastroparesis by GI in [place] -Type I DM -Glucose in ED 204-->now 229 -Anion gap in ED 22.9-->now 18.8 -Urine ketones 2.7 in ED -KUB negative for SBO, Shows gas throughout small and large bowel with stool in descending colon -Symptoms started last night -Has not been able to eat or drink today or last night due to N&V -Reports Phenergan is only thing that helped N&V in past. -Was given Zofran, Reglan, and Benadryl in ED -Fluid bolus started in ED and continued on floor. -4 units Levemir given in ED prior to admission to floor. -Questioning cannabinoid hyperemesis syndrome -Story has changed several times about amount of marijuana pt. smokes -Reports hot showers help with symptoms -Reports diagnosed with this in [place] and quit smoking marijuana, however symptoms remained -Phenergan Q4HR PRN -Telemetry to monitor for QT prolongation -Will consider insulin and D5NS drip if anion gap remains elevated and glucose level does not respond. -Start Q1HR bedside glucometer checks for now Abdominal pain -Epigastrium and RUQ. -CRP negative -She still has gallbladder but no appendix -Likely 2/2 above processes -Lipase slightly low at 72 -Will continue to monitor Diarrhea -Pt. reports it correlates with vomiting -Likely secondary to above -Will continue to monitor UTI -UA not very impressive -Nitrite and Leukocyte esterase negative -Few amorphous sedimate -Many bacteria -Culture ordered - will follow-up -Levaquin started in ED Chronic: Type I DM -Monitor sugars as indicated -Likely contributory to above -Insulin sliding scale protocol as indicated -Continue home insulin dosing Plan: Admit to M/S/P with telemetry SW/ for discharge planning Diabetic nurse educator consult if able Routine AM labs GI prophylaxis DVT prophylaxis Hot showers PRN as these seem to help symptoms Other orders as indicated above She is a full code. Patient of Dr. Essie Skaggs This case was discussed with Dr. Salmon.
[2017-07-01] MEDS ORDERED: Pantoprazole 40 MG Vial IVPUSH ONE (17:26)
[2017-07-01] MEDS: Nicotine 21 MG/24 Hr Patch TRDERM SCH (19:15)
[2017-07-01] MEDS: Promethazine 25 MG/ML SDV IM PRN (19:27)
[2017-07-01] MEDS ORDERED: Insulin Aspart 100 Units/ML 3 ML Pen SUBCUT ONE (19:37)
[2017-07-01] MEDS: Sodium Chloride 0.9% 1,000 ML IV SCH (22:21)
[2017-07-02] MEDS: Sodium Chloride 0.9% 1,000 ML IV SCH ×3 (06:21→23:40)
[2017-07-02] MEDS: Insulin Aspart 100 Units/ML 3 ML Pen SUBCUT SCH ×4 (06:36→23:03)
[2017-07-02] MEDS: Promethazine 25 MG/ML SDV IM PRN (06:56)
--- NOTE | 2017-07-02 08:20 | PCM.PN ---
- General Info Date of Service: 07/02/17 Admission Dx/Problem (Free Text): Admission Diagnosis/Problem Admission Diagnosis/Problem Nausea and vomiting Subjective Update: Patient seen and evaluated bedside this morning. Still complaining of nausea despite receiving anti-emetics. She is still nothing by mouth. Functional Status: Reports: Pain Controlled, Ambulating, Urinating. Denies: Tolerating Diet, New Symptoms - Review of Systems General: Denies: Appetite HEENT: Reports: No Symptoms Pulmonary: Reports: No Symptoms Cardiovascular: Reports: No Symptoms Gastrointestinal: Reports: Nausea, Vomiting Genitourinary: Reports: No Symptoms Musculoskeletal: Reports: No Symptoms Skin: Reports: No Symptoms Neurological: Reports: No Symptoms Psychiatric: Reports: No Symptoms - Patient Data Vitals - Most Recent: Last Vital Signs Temp 99.9 F 07/01/17 23:59 Pulse 90 07/01/17 23:59 Resp 12 07/01/17 23:59 BP 98/57 L 07/01/17 23:59 Pulse Ox 96 07/01/17 23:59 Weight - Most Recent: 62.777 kg I&O - Last 24 Hours: Intake & Output 07/01/17 07/02/17 07/02/17 22:59 06:59 14:59 Intake Total 2150 2700 Balance 2150 2700 Lab Results Last 24 Hours: Laboratory Results - last 24 hr 07/01/17 07/01/17 07/01/17 Range/Units 17:24 17:33 19:17 WBC (3.98-10.04) K/mm3 RBC (3.98-5.22) M/mm3 Hgb (11.2-15.7) gm/L Hct (34.1-44.9) % MCV (79.4-94.8) fl MCH (25.6-32.2) pg MCHC (32.2-35.5) g/dl RDW Std Deviation (36.4-46.3) fL Plt Count (182-369) K/mm3 MPV (9.4-12.3) fl Neut % (Auto) (34.0-71.1) % Lymph % (Auto) (19.3-51.7) % [place] % (Auto) (4.7-12.5) % Eos % (Auto) (0.7-5.8) Baso % (Auto) (0.1-1.2) % Neut # (Auto) (1.56-6.13) K/mm3 Lymph # (Auto) (1.18-3.74) K/mm3 [place] # (Auto) (0.24-0.36) K/mm3 Eos # (Auto) (0.04-0.36) K/mm3 Baso # (Auto) (0.01-0.08) K/mm3 Sodium 139 (136-145) mEq/L Potassium 4.8 (3.5-5.1) mEq/L Chloride 103 (98-107) mEq/L Carbon Dioxide 22 (21-32) mEq/L Anion Gap 18.8 H (5-15) BUN 8 (7-18) mg/dL Creatinine 0.9 (0.55-1.02) mg/dL Est Cr Clr Drug Dosing 83.23 mL/min Estimated GFR (MDRD) > 60 (>60) mL/min BUN/Creatinine Ratio 8.9 L (14-18) Glucose 262 H (74-106) mg/dL POC Glucose 229 H 191 H (70-105) mg/dL Hemoglobin A1c (4.50-6.20) % Calcium 9.5 (8.5-10.1) mg/dL Magnesium (1.8-2.4) mg/dl 07/01/17 07/01/17 07/01/17 Range/Units 19:55 19:55 20:54 WBC (3.98-10.04) K/mm3 RBC (3.98-5.22) M/mm3 Hgb (11.2-15.7) gm/L Hct (34.1-44.9) % MCV (79.4-94.8) fl MCH (25.6-32.2) pg MCHC (32.2-35.5) g/dl RDW Std Deviation (36.4-46.3) fL Plt Count (182-369) K/mm3 MPV (9.4-12.3) fl Neut % (Auto) (34.0-71.1) % Lymph % (Auto) (19.3-51.7) % [place] % (Auto) (4.7-12.5) % Eos % (Auto) (0.7-5.8) Baso % (Auto) (0.1-1.2) % Neut # (Auto) (1.56-6.13) K/mm3 Lymph # (Auto) (1.18-3.74) K/mm3 [place] # (Auto) (0.24-0.36) K/mm3 Eos # (Auto) (0.04-0.36) K/mm3 Baso # (Auto) (0.01-0.08) K/mm3 Sodium 140 (136-145) mEq/L Potassium 4.1 (3.5-5.1) mEq/L Chloride 105 (98-107) mEq/L Carbon Dioxide 23 (21-32) mEq/L Anion Gap 16.1 H (5-15) BUN 7 (7-18) mg/dL Creatinine 0.8 (0.55-1.02) mg/dL Est Cr Clr Drug Dosing 93.63 mL/min Estimated GFR (MDRD) > 60 (>60) mL/min BUN/Creatinine Ratio 8.8 L (14-18) Glucose 210 H (74-106) mg/dL POC Glucose 153 H (70-105) mg/dL Hemoglobin A1c 7.50 H (4.50-6.20) % Calcium 8.9 (8.5-10.1) mg/dL Magnesium (1.8-2.4) mg/dl 07/02/17 07/02/17 07/02/17 Range/Units 00:01 06:26 06:53 WBC 9.69 (3.98-10.04) K/mm3 RBC 4.41 (3.98-5.22) M/mm3 Hgb 13.3 (11.2-15.7) gm/L Hct 39.9 (34.1-44.9) % MCV 90.5 (79.4-94.8) fl MCH 30.2 (25.6-32.2) pg MCHC 33.3 (32.2-35.5) g/dl RDW Std Deviation 45.9 (36.4-46.3) fL Plt Count 315 (182-369) K/mm3 MPV 10.0 (9.4-12.3) fl Neut % (Auto) 67.3 (34.0-71.1) % Lymph % (Auto) 18.5 L (19.3-51.7) % [place] % (Auto) 12.8 H (4.7-12.5) % Eos % (Auto) 0.9 (0.7-5.8) Baso % (Auto) 0.3 (0.1-1.2) % Neut # (Auto) 6.52 H (1.56-6.13) K/mm3 Lymph # (Auto) 1.79 (1.18-3.74) K/mm3 [place] # (Auto) 1.24 H (0.24-0.36) K/mm3 Eos # (Auto) 0.09 (0.04-0.36) K/mm3 Baso # (Auto) 0.03 (0.01-0.08) K/mm3 Sodium (136-145) mEq/L Potassium (3.5-5.1) mEq/L Chloride (98-107) mEq/L Carbon Dioxide (21-32) mEq/L Anion Gap (5-15) BUN (7-18) mg/dL Creatinine (0.55-1.02) mg/dL Est Cr Clr Drug Dosing mL/min Estimated GFR (MDRD) (>60) mL/min BUN/Creatinine Ratio (14-18) Glucose (74-106) mg/dL POC Glucose 138 H 115 H (70-105) mg/dL Hemoglobin A1c (4.50-6.20) % Calcium (8.5-10.1) mg/dL Magnesium (1.8-2.4) mg/dl 07/02/17 Range/Units 06:53 WBC (3.98-10.04) K/mm3 RBC (3.98-5.22) M/mm3 Hgb (11.2-15.7) gm/L Hct (34.1-44.9) % MCV (79.4-94.8) fl MCH (25.6-32.2) pg MCHC (32.2-35.5) g/dl RDW Std Deviation (36.4-46.3) fL Plt Count (182-369) K/mm3 MPV (9.4-12.3) fl Neut % (Auto) (34.0-71.1) % Lymph % (Auto) (19.3-51.7) % [place] % (Auto) (4.7-12.5) % Eos % (Auto) (0.7-5.8) Baso % (Auto) (0.1-1.2) % Neut # (Auto) (1.56-6.13) K/mm3 Lymph # (Auto) (1.18-3.74) K/mm3 [place] # (Auto) (0.24-0.36) K/mm3 Eos # (Auto) (0.04-0.36) K/mm3 Baso # (Auto) (0.01-0.08) K/mm3 Sodium 142 (136-145) mEq/L Potassium 3.5 (3.5-5.1) mEq/L Chloride 107 (98-107) mEq/L Carbon Dioxide 21 (21-32) mEq/L Anion Gap 17.5 H (5-15) BUN 7 (7-18) mg/dL Creatinine 0.7 (0.55-1.02) mg/dL Est Cr Clr Drug Dosing 107.01 mL/min Estimated GFR (MDRD) > 60 (>60) mL/min BUN/Creatinine Ratio 10.0 L (14-18) Glucose 135 H (74-106) mg/dL POC Glucose (70-105) mg/dL Hemoglobin A1c (4.50-6.20) % Calcium 9.0 (8.5-10.1) mg/dL Magnesium 1.6 L (1.8-2.4) mg/dl Med Orders - Current: Current Medications Acetaminophen (Tylenol) 650 mg PO Q4H PRN PRN Reason: Pain (Mild 1-3)/fever Hydrocodone Bitart/Acetaminophen ([place] 325-5 Mg) 1 tab PO Q4H PRN PRN Reason: Pain (moderate 4-6) Albuterol/Ipratropium (Duoneb 3.0-0.5 Mg/3 Ml) 3 ml NEB Q4H PRN PRN Reason: Shortness Of Breath/wheezing Dextrose/Water (Dextrose 50% In Water) 50 ml IVPUSH ASDIRECTED PRN PRN Reason: Hypoglycemia Sodium Chloride (Normal Saline) 1,000 mls @ 125 mls/hr IV ASDIRECTED [facility] Last Admin: 07/02/17 06:21 Dose: 125 mls/hr Insulin Aspart (Novolog) 0 unit SUBCUT QIDACANDBED [facility] PRN Reason: Protocol Last Admin: 07/02/17 06:36 Dose: Not Given Insulin Detemir (Levemir) 6 unit SUBCUT DAILY [facility] Miscellaneous Information (Remove Patch) 1 ea TRDERM DAILY [facility] Nicotine (Habitrol) 21 mg TRDERM DAILY [facility] Last Admin: 07/01/17 19:15 Dose: Not Given Promethazine HCl (Phenergan) 12.5 mg IM Q4HR PRN PRN Reason: Nausea/Vomiting Last Admin: 07/02/17 06:56 Dose: 12.5 mg Temazepam (Restoril) 7.5 mg PO BEDTIME PRN PRN Reason: Sleep Discontinued Medications Diphenhydramine HCl (Benadryl) 25 mg IVPUSH ONETIME ONE Stop: 07/01/17 10:25 Last Admin: 07/01/17 10:34 Dose: 25 mg Hydromorphone HCl (Dilaudid) 0.5 mg IVPUSH ONETIME ONE Stop: 07/01/17 08:33 Last Admin: 07/01/17 09:09 Dose: 0.5 mg Sodium Chloride (Normal Saline) 1,000 mls @ 999 mls/hr IV ONETIME ONE Stop: 07/01/17 09:32 Last Admin: 07/01/17 09:55 Dose: 999 mls/hr Sodium Chloride (Normal Saline) 1,000 mls @ 999 mls/hr IV ASDIRECTED [facility] Last Admin: 07/01/17 11:45 Dose: 999 mls/hr Sodium Chloride (Normal Saline) Confirm Administered Dose 1,000 mls @ as directed .ROUTE .STK-MED ONE Stop: 07/01/17 11:45 Last Admin: 07/01/17 11:45 Dose: Not Given Levofloxacin/Dextrose 750 mg/ (Premix) 150 mls @ 100 mls/hr IV ONETIME ONE Stop: 07/01/17 13:35 Last Admin: 07/01/17 12:52 Dose: 100 mls/hr Sodium Chloride (Normal Saline) 1,000 mls @ 999 mls/hr IV ASDIRECTED [facility] Last Admin: 07/01/17 19:14 Dose: 999 mls/hr Influenza Virus Vaccine (Flulaval Quad [id number]) 60 mcg IM .ONCE ONE Stop: 07/01/17 16:16 Insulin Aspart (Novolog) 1 unit SUBCUT ONETIME ONE Stop: 07/01/17 19:38 Last Admin: 07/01/17 20:12 Dose: 1 unit Insulin Detemir (Levemir) 4 unit SUBCUT ONETIME ONE Stop: 07/01/17 13:43 Last Admin: 07/01/17 14:47 Dose: 4 unit Metoclopramide HCl (Reglan) 7.5 mg IVPUSH ONETIME ONE Stop: 07/01/17 08:33 Last Admin: 07/01/17 09:05 Dose: 7.5 mg Ondansetron HCl (Zofran) 4 mg IVPUSH ONETIME ONE Stop: 07/01/17 10:25 Last Admin: 07/01/17 10:34 Dose: 4 mg Ondansetron HCl (Zofran) 4 mg IVPUSH ONETIME ONE Stop: 07/01/17 11:59 Last Admin: 07/01/17 12:04 Dose: 4 mg Pantoprazole Sodium (Protonix Iv) 40 mg IVPUSH ONETIME ONE Stop: 07/01/17 17:27 Last Admin: 07/01/17 19:14 Dose: 40 mg Promethazine HCl (Phenergan) 12.5 mg IM Q6H PRN PRN Reason: Nausea/Vomiting Promethazine HCl (Phenergan) 12.5 mg IM ONETIME ONE Stop: 07/01/17 15:53 Last Admin: 07/01/17 16:14 Dose: 12.5 mg - Exam General: Alert, Oriented HEENT: Pupils Equal, Pupils Reactive, EOMI, Mucous Membr. Moist/[place] Neck: Supple Lungs: Clear to Auscultation, Normal Respiratory Effort Cardiovascular: Regular Rate, Regular Rhythm GI/Abdominal Exam: Normal Bowel Sounds, Soft, Non-Tender, No Organomegaly, No Distention, No Abnormal Bruit, No Mass, Pelvis Stable (Female) Exam: Deferred Back Exam: Normal Inspection, Full Range of Motion Extremities: Normal Inspection, Normal Range of Motion, Non-Tender, No Pedal Edema, Normal Capillary Refill Peripheral Pulses: 2+: Carotid (L), Carotid (R), Brachial (L), Brachial (R), Radial (L), Radial (R), Femoral (L), Femoral (R), Popliteal (L), Popliteal (R), Posterior Tibial (L), Posterior Tibial (R), Dorsalis Pedis (L), Dorsalis Pedis ( R) Skin: Warm, Dry, Intact Neurological: No New Focal Deficit Psy/Mental Status: Alert, Normal Affect, Normal Mood - Problem List & Annotations (1) Uncontrolled type 2 diabetes mellitus with gastroparesis SNOMED Code(s): 03175199 Code(s): E11.43 - TYPE 2 DIABETES W DIABETIC AUTONOMIC (POLY)NEUROPATHY; E11.65 - TYPE 2 DIABETES MELLITUS WITH HYPERGLYCEMIA Status: Acute Current Visit: Yes (2) Cannabinoid hyperemesis syndrome SNOMED Code(s): 101864981 Code(s): F12.988 - CANNABIS USE, UNSP WITH OTHER CANNABIS-INDUCED DISORDER Status: Acute Current Visit: Yes (3) Intractable nausea and vomiting SNOMED Code(s): 048327480 Code(s): R11.2 - NAUSEA WITH VOMITING, UNSPECIFIED Status: Acute Priority : High Current Visit: Yes Qualifiers: Vomiting type: unspecified Qualified Code(s): R11.2 - Nausea with vomiting , unspecified (4) Metabolic acidosis SNOMED Code(s): 19138971 Code(s): E87.2 - ACIDOSIS Status: Acute Priority: High Current Visit: Yes - Problem List Review Problem List Initiated/Reviewed/Updated: Yes - My Orders Last 24 Hours: My Active Orders 07/01/17 21:30 Sodium Chloride 0.9% [Normal Saline] 1,000 ml IV ASDIRECTED 07/02/17 Breakfast NPO Now [Nothing per Oral Now Diet] [DIET] - Assessment Assessment:: 1. Cannabinoid hyperemesis syndrome causing intractable nausea and vomiting. 2. Uncontrolled Diabetes mellitus type 2 with gastroparesis. 3. Chronic active marijuana user. - Plan Plan:: 1. Continue IV fluid hydration with 0.9% normal saline at 100 mL per hour. 2. IV Ativan 0.5 mg every 8 hours as needed for nausea and vomiting. 3. Advance diet to clear liquid diet as tolerated. 4. Monitor fingerstick glucose every 6 hours with insulin sliding scale coverage and basal insulin. 5. Substance abuse counseling consult requested. 6. Discharge planning.
[2017-07-02] MEDS ORDERED: diphenhydrAMINE 50 MG/ML SDV IVPUSH PRN (09:23)
[2017-07-02] MEDS ORDERED: Promethazine 25 MG/ML SDV IM PRN (09:26)
[2017-07-02] MEDS: Nicotine 21 MG/24 Hr Patch TRDERM SCH (09:29)
[2017-07-02] MEDS: Ondansetron 4 MG/2 ML SDV IVPUSH PRN ×3 (09:46→21:51)
[2017-07-02] MEDS: Insulin Detemir 100 Units/ML 3 ML Pen SUBCUT SCH (09:47)
[2017-07-02] MEDS: LORazepam 2 MG/ML MDV IVPUSH PRN (17:54)
--- NOTE | 2017-07-02 20:09 | CONS ---
CONSULTING PHYSICIAN: Hussein Grant LAC DATE OF CONSULTATION: 07/02/2017 TIME: 7:28 p.m. HISTORY: By voicemail, I received a request for an alcohol and drug evaluation at approximately 1:15 p.m. on 07/02/2017. I returned the phone call and asked the nurse if she would visit with the patient prior to my coming to the hospital and asked the patient if she would be amenable to speak with an addiction counselor and to call me back if the patient would be willing to speak with me. I received a return phone call from the attending nurse and she informed me that the patient was not amenable to visit with me and that the patient verbalized that she did not want to speak to an addiction counselor. Should the patient change her mind and be willing to speak with an addiction counselor, I will respond as soon as possible. Respecting the patient's autonomy, I will wait for the patient to be in agreement with following through with an alcohol and drug evaluation. EZEQUIEL /[id number]
[2017-07-03] MEDS: LORazepam 2 MG/ML MDV IVPUSH PRN (05:58)
[2017-07-03] MEDS: Nicotine 21 MG/24 Hr Patch TRDERM SCH (08:58)
[2017-07-03] MEDS: Insulin Aspart 100 Units/ML 3 ML Pen SUBCUT SCH ×2 (08:58→13:09)
[2017-07-03] MEDS: Sodium Chloride 0.9% 1,000 ML IV SCH (09:08)
[2017-07-03] MEDS: Insulin Detemir 100 Units/ML 3 ML Pen SUBCUT SCH (09:09)
[2017-07-03] MEDS: Ondansetron 4 MG/2 ML SDV IVPUSH PRN (09:52)
--- NOTE | 2017-07-03 13:27 | PCM.DCSUM1 ---
Discharge Summary - Hospital Course Free Text/Narrative:: Patient is a 31-year-old woman with past medical history of diabetes mellitus which was diagnosed last year as well as gastroparesis. She also has an extended history of cannabis use. She presented to the emergency room with complaints of intractable nausea and multiple episodes of vomiting. She was then admitted to the medicine service and started on anti-emetics, IV fluid hydration and bowel rest. She improved and diet was advanced successfully. Substance abuse counseling was requested but patient refused as she states that she does not need any help with cannabis use. She is able to tolerate food and denies any nausea at this time. She will be discharged in stable condition and has been advised to follow up with her primary care physician within 2 weeks of discharge. HPI Initial Comments: Koki Marina is a 31 year old female patient who presented to our ED today with complaints of right upper abdominal and epigastric pain. She reports symptoms started yesterday. She recently moved here from [place] where she was diagnosed with gastroparesis secondary to type I diabetes. Vomiting started last night and continued today. Emisis was reported as clear but slightly biliary tinged. She reports diarrhea accompanies her vomiting. No blood in either. She did not take her usual insulin this AM. She has reportedly hardly ate or drank anything today or yesterday. Vital signs in the ER were temperature 36.7 Celsius pulse 83. Respirations 12. BP 144/100. Pulse ox 99%. Labs were obtained and revealed a slightly elevated white blood cell count at 12.43. Hemoglobin normal at 15.4. Platelet count high at 376. No bandemia. Sodium was normal at 139. Potassium normal at 3.9. Chloride normal at 102. From an accident low at 18. Anion gap very high at 22.9. BUN low at 6. Creatinine normal at 0.8. EGFR normal at greater than 60. Glucose was high at 204. Magnesium was on the low end of normal at 1.8. Liver enzymes AST was elevated at 78. AST was elevated at 96. Alkaline phosphatase was normal at 58. Albumin was normal at 4.5. Lipase was just slightly low at 72. HCG was negative. Urine revealed an elevated specific gravity. Protein was 1+. Ketones were 3+. Urine nitrite and leukocyte esterase were both negative. There was few amorphus sediment and many urine bacteria. Urine ketones were elevated at 2.7. She was started on a fluid bolus. Diphenhydramine as well as Reglan were given. Zofran was given. Reglan and Zofran had little effect on patient's nausea and vomiting. She is also given 4 units of Levemir as she had not taken her daily insulin. She was also started on 750 mg of Levaquin. She was afebrile and vital signs were stable. KUB was obtained and reveals partial gas throughout small bowel and large bowel. A small amount of stool is noted in the descending colon. There were no signs of bowel obstruction. As noted above, she carries a hx of Type I diabetes and gastroparesis. She has had a prior appendectomy. She does vape and utilizes recreational marijuana. She was subsequently admitted to the [facility] floor on telemetry. She is a full code. She is a patient of Dr. Essie Skaggs at [facility] in [place]. - Discharge Data Discharge Date: 07/03/17 Discharge Disposition: Home, Self-Care 01 Condition: Good - Discharge Diagnosis/Problem(s) (1) Uncontrolled type 2 diabetes mellitus with gastroparesis SNOMED Code(s): 79212552 ICD Code: E11.43 - TYPE 2 DIABETES W DIABETIC AUTONOMIC (POLY)NEUROPATHY; E11.65 - TYPE 2 DIABETES MELLITUS WITH HYPERGLYCEMIA Status: Chronic Current Visit: Yes (2) Cannabinoid hyperemesis syndrome SNOMED Code(s): 331397775 ICD Code: F12.988 - CANNABIS USE, UNSP WITH OTHER CANNABIS-INDUCED DISORDER Status: Acute Current Visit: Yes (3) Intractable nausea and vomiting SNOMED Code(s): 437966599 ICD Code: R11.2 - NAUSEA WITH VOMITING, UNSPECIFIED Status: Resolved Priority: High Current Visit: Yes Qualifiers: Vomiting type: unspecified Qualified Code(s): R11.2 - Nausea with vomiting , unspecified (4) Metabolic acidosis SNOMED Code(s): 58463512 ICD Code: E87.2 - ACIDOSIS Status: Resolved Priority: High Current Visit: Yes - Patient Summary/Data Consults: Consultations 07/01/17 15:39 Consult to Case Management [CONS] Routine Consult to Diabetic Nurse Specialist [CONS] Routine Consult to Service Member [CONS] Routine 07/02/17 12:21 Consult for Substance Abuse [CONS] Routine - Patient Instructions Diet: Regular Diet as Tolerated, Drink 8-10+ Glasses/Day, No Alcoholic Beverages Activity: As Tolerated Notify Provider of: Nausea and/or Vomiting - Discharge Plan Prescriptions/Med Rec: Nicotine [Habitrol] 21 mg TRDERM DAILY #14 patch Ondansetron [Zofran ODT] 4 mg PO Q12H PRN #10 tab.dis PRN Reason: Nausea Home Medications: Home Meds Insulin Aspart [Novolog Flexpen] 1 - 10 unit SQ TID 07/01/17 [History] Insulin Glargine,Hum.Rec.Anlog [Toujeo Solostar] 6 units SUBCUT DAILY 07/01/17 [ History] Nicotine [Habitrol] 21 mg TRDERM DAILY #14 patch 07/03/17 [Rx] Ondansetron [Zofran ODT] 4 mg PO Q12H PRN #10 tab.dis 07/03/17 [Rx] Referrals: Essie Skaggs DO [Primary Care Provider] - (Please call your primary care physician to make an appointment within 2 weeks of discharge.) - Discharge Summary/Plan Comment DC Time >30 min.: Yes - General Info Date of Service: 07/03/17 Admission Dx/Problem (Free Text: Admission Diagnosis/Problem Admission Diagnosis/Problem Nausea and vomiting Subjective Update: Patient was seen bedside this morning, appears improved and denies any new problems. She states that she had her breakfast and tolerated it very well and was looking for to lunch. Functional Status: Reports: Pain Controlled, Tolerating Diet, Ambulating, Urinating. Denies: New Symptoms - Review of Systems General: Reports: No Symptoms HEENT: Reports: No Symptoms Pulmonary: Reports: No Symptoms Cardiovascular: Reports: No Symptoms Gastrointestinal: Reports: No Symptoms Genitourinary: Reports: No Symptoms Musculoskeletal: Reports: No Symptoms Skin: Reports: No Symptoms Neurological: Reports: No Symptoms Psychiatric: Reports: No Symptoms - Patient Data Vitals - Most Recent: Last Vital Signs Temp 98.6 F 07/03/17 09:01 Pulse 57 L 07/03/17 09:01 Resp 16 07/03/17 05:53 BP 125/91 H 07/03/17 09:01 Pulse Ox 100 07/03/17 09:01 Weight - Most Recent: 63.911 kg I&O - Last 24 hours: Intake & Output 07/02/17 07/03/17 07/03/17 22:59 06:59 14:59 Intake Total 1590 2650 180 Balance 1590 2650 180 Lab Results - Last 24 hrs: Laboratory Results - last 24 hr 07/02/17 07/02/17 07/03/17 Range/Units 17:11 21:46 05:51 POC Glucose 68 L 47 L 76 (70-105) mg/dL 07/03/17 Range/Units 11:17 POC Glucose 84 (70-105) mg/dL Med Orders - Current: Current Medications Acetaminophen (Tylenol) 650 mg PO Q4H PRN PRN Reason: Pain (Mild 1-3)/fever Albuterol/Ipratropium (Duoneb 3.0-0.5 Mg/3 Ml) 3 ml NEB Q4H PRN PRN Reason: Shortness Of Breath/wheezing Dextrose/Water (Dextrose 50% In Water) 50 ml IVPUSH ASDIRECTED PRN PRN Reason: Hypoglycemia Insulin Aspart (Novolog) 0 unit SUBCUT QIDACANDBED [facility] PRN Reason: Protocol Last Admin: 07/03/17 13:09 Dose: Not Given Insulin Detemir (Levemir) 6 unit SUBCUT DAILY [facility] Last Admin: 07/03/17 09:09 Dose: 6 units Lorazepam (Ativan) 0.5 mg IVPUSH Q8H PRN PRN Reason: Nausea/Vomiting Last Admin: 07/03/17 05:58 Dose: 0.5 mg Miscellaneous Information (Remove Patch) 1 ea TRDERM DAILY [facility] Last Admin: 07/03/17 08:58 Dose: Not Given Nicotine (Habitrol) 21 mg TRDERM DAILY [facility] Last Admin: 07/03/17 08:58 Dose: Not Given Ondansetron HCl (Zofran) 4 mg IVPUSH Q6H PRN PRN Reason: Nausea/Vomiting Last Admin: 07/03/17 09:52 Dose: 4 mg Discontinued Medications Hydrocodone Bitart/Acetaminophen ([place] 325-5 Mg) 1 tab PO Q4H PRN PRN Reason: Pain (moderate 4-6) Diphenhydramine HCl (Benadryl) 25 mg IVPUSH ONETIME ONE Stop: 07/01/17 10:25 Last Admin: 07/01/17 10:34 Dose: 25 mg Diphenhydramine HCl (Benadryl) 25 mg IVPUSH Q6H PRN PRN Reason: Nausea/Vomiting Last Admin: 07/02/17 09:46 Dose: 25 mg Hydromorphone HCl (Dilaudid) 0.5 mg IVPUSH ONETIME ONE Stop: 07/01/17 08:33 Last Admin: 07/01/17 09:09 Dose: 0.5 mg Sodium Chloride (Normal Saline) 1,000 mls @ 999 mls/hr IV ONETIME ONE Stop: 07/01/17 09:32 Last Admin: 07/01/17 09:55 Dose: 999 mls/hr Sodium Chloride (Normal Saline) 1,000 mls @ 999 mls/hr IV ASDIRECTED [facility] Last Admin: 07/01/17 11:45 Dose: 999 mls/hr Sodium Chloride (Normal Saline) Confirm Administered Dose 1,000 mls @ as directed .ROUTE .STK-MED ONE Stop: 07/01/17 11:45 Last Admin: 07/01/17 11:45 Dose: Not Given Levofloxacin/Dextrose 750 mg/ (Premix) 150 mls @ 100 mls/hr IV ONETIME ONE Stop: 07/01/17 13:35 Last Admin: 07/01/17 12:52 Dose: 100 mls/hr Sodium Chloride (Normal Saline) 1,000 mls @ 999 mls/hr IV ASDIRECTED [facility] Last Admin: 07/01/17 19:14 Dose: 999 mls/hr Sodium Chloride (Normal Saline) 1,000 mls @ 125 [facility] Last Admin: 07/03/17 09:08 Dose: 125 mls/hr Magnesium Sulfate/Dextrose 1 (gm/ Premix) 100 mls @ 100 mls/hr IV ONETIME ONE Stop: 07/02/17 17:20 Last Admin: 07/02/17 16:51 Dose: 100 mls/hr Influenza Virus Vaccine (Flulaval Quad [id number]) 60 mcg IM .ONCE ONE Stop: 07/01/17 16:16 Insulin Aspart (Novolog) 1 unit SUBCUT ONETIME ONE Stop: 07/01/17 19:38 Last Admin: 07/01/17 20:12 Dose: 1 unit Insulin Detemir (Levemir) 4 unit SUBCUT ONETIME ONE Stop: 07/01/17 13:43 Last Admin: 07/01/17 14:47 Dose: 4 unit Metoclopramide HCl (Reglan) 7.5 mg IVPUSH ONETIME ONE Stop: 07/01/17 08:33 Last Admin: 07/01/17 09:05 Dose: 7.5 mg Ondansetron HCl (Zofran) 4 mg IVPUSH ONETIME ONE Stop: 07/01/17 10:25 Last Admin: 07/01/17 10:34 Dose: 4 mg Ondansetron HCl (Zofran) 4 mg IVPUSH ONETIME ONE Stop: 07/01/17 11:59 Last Admin: 07/01/17 12:04 Dose: 4 mg Pantoprazole Sodium (Protonix Iv) 40 mg IVPUSH ONETIME ONE Stop: 07/01/17 17:27 Last Admin: 07/01/17 19:14 Dose: 40 mg Promethazine HCl (Phenergan) 12.5 mg IM Q6H PRN PRN Reason: Nausea/Vomiting Promethazine HCl (Phenergan) 12.5 mg IM ONETIME ONE Stop: 07/01/17 15:53 Last Admin: 07/01/17 16:14 Dose: 12.5 mg Promethazine HCl (Phenergan) 12.5 mg IM Q4HR PRN PRN Reason: Nausea/Vomiting Last Admin: 07/02/17 06:56 Dose: 12.5 mg Promethazine HCl (Phenergan) 12.5 mg IM Q4H PRN PRN Reason: Nausea/Vomiting Temazepam (Restoril) 7.5 mg PO BEDTIME PRN PRN Reason: Sleep - Exam General: Reports: Alert, Oriented HEENT: Reports: Pupils Equal, Pupils Reactive, EOMI, Mucous Membr. Moist/[place] Neck: Reports: Supple Lungs: Reports: Clear to Auscultation, Normal Respiratory Effort Cardiovascular: Reports: Regular Rate, Regular Rhythm GI/Abdominal Exam: Normal Bowel Sounds, Soft, Non-Tender, No Organomegaly, No Distention, No Abnormal Bruit, No Mass, Pelvis Stable (Female) Exam: Deferred Rectal (Female) Exam: Deferred Back Exam: Reports: Normal Inspection, Full Range of Motion Extremities: Normal Inspection, Normal Range of Motion, Non-Tender, No Pedal Edema, Normal Capillary Refill Skin: Reports: Warm, Dry, Intact Neurological: Reports: No New Focal Deficit Psy/Mental Status: Reports: Alert, Normal Affect, Normal Mood *Q Meaningful Use (DIS) - VTE *Q VTE Criteria *Q: - Stroke *Q Stroke Criteria *Q: - AMI *Q AMI Criteria *Q:
[2017-07-03 13:32] VITALS: BP 115/89
== END 2017-07-03 14:30 | disposition home or self-care (01) | DRG 776 ==
LOC: JD.ED 07:42 → SUPCPDRO 07:42 → JD.MS 13:58
PROVIDERS: ADMIT Hospitalist; ATTEND Hospitalist
DX: F12.988 Cannabis use, unspecified with other cannabis-induced disorder (principal); R19.7 Diarrhea, unspecified; N30.01 Acute cystitis with hematuria; E10.65 Type 1 diabetes mellitus with hyperglycemia; K31.84 Gastroparesis; Z79.4 Long term (current) use of insulin; H54.7 Unspecified visual loss; F17.210 Nicotine dependence, cigarettes, uncomplicated; Z88.0 Allergy status to penicillin
CPT/HCPCS: 36415; 74000; 74000-26; 80048; 80053; 80306; 81001; 82009; 82962; 83036; 83690; 83735; 84703; 85025; 86140; 87086; 96361; 96365; 96372; 96375; 96376; 99285; 99285-25; C9113; J1170; J1200; J1815-GY; J1956; J2060; J2405; J2550; J2765; J3475; J7040

== ENCOUNTER 2019-10-01 02:20 | Emergency (ER) | payer BC ==
[2019-10-01 02:36] VITALS: BP 145/96; PULSE 90
[2019-10-01] MEDS ORDERED: Lactated Ringers 1,000 ML IV ONE (02:54)
[2019-10-01] MEDS ORDERED: FLU Vacc QS2019-20(6MOS+)/PF 60 MCG/0.5 ML SYRINGE IM ONE (03:00)
--- NOTE | 2019-10-01 03:15 | EDM.PDOC ---
ED HPI GENERAL MEDICAL PROBLEM - General Chief Complaint: Diabetic Complaint Stated Complaint: TYPE I DIABETIC. RT LEG NUMB Time Seen by Provider: 10/01/19 02:31 Source of Information: Reports: Patient History Limitations: Reports: No Limitations - History of Present Illness INITIAL COMMENTS - FREE TEXT/NARRATIVE: Mrs. Marina is a 33-year-old woman with a past medical history significant for type 1 diabetes diagnosed in 2014, and gastroparesis diagnosed in 2016. She ordinarily takes 5 units of Tresiba per day and 7 units of Humalog per day, but she states that over the past week, her blood glucoses have been between 500 and 600, therefore she has increased her Tresiba to 10 units per day and her Humalog to 15 units per day. She now presents to the ED stating that she has had entire right upper extremity pain - a burning sensation that feels like she fell asleep on her arm - for the past week. She also feels like her right arm is more swollen than usual. She also developed similar left leg numbness, tonight. She denies prior similar symptoms. The patient expressly denies recent fever, nausea, vomiting, constipation, diarrhea, urinary symptoms, abdominal pain, cough, dyspnea, chest pain, or palpitations. She reports an approximately 15 pound unintentional weight loss over the past 3 months. No recent black or bloody bowel movements, headaches, or rashes. The patient denies a prior history of DKA. Other than gastroparesis, the patient denies other complications of diabetes, such as diabetic retinopathy, nephropathy, or neuropathy. The patient's PCP is Lea Saenz NP. The patient last saw Ms. Saenz around October 2018. She last saw the adaptive physical educator around that time, as well. The patient does not have an Junior Brand Manager. The patient has not received an influenza vaccine this season, but agreed to receive one here. Right Arm Pain Score (Numeric/FACES): 9 - Related Data Allergies Allergy/AdvReac Type Severity Reaction Status Date / Time Penicillins Allergy Cannot Verified 10/01/19 02:33 Remember Home Meds: Home Meds Insulin Aspart [Novolog Flexpen] 1 - 10 unit SQ TID 07/01/17 [History] Insulin Glargine,Hum.Rec.Anlog [Toujeo Solostar] 10 units SUBCUT DAILY 07/01/17 [History] Magnesium Oxide [Magnesium] 1,600 mg PO DAILY 10/01/19 [History] Past Medical History HEENT History: Reports: Impaired Vision Other HEENT History: wear glasses Gastrointestinal History: Reports: Other (See Below) (Gastroparesis dx'd 2015) Endocrine/Metabolic History: Reports: Diabetes, Type I (dx'd 2014) - Past Surgical History GI Surgical History: Reports: Appendectomy Other GI Surgeries/Procedures: gastroparesis Social & Family History - Family History Family Medical History: Noncontributory - Tobacco Use Smoking Status *Q: Current Every Day Smoker Years of Tobacco use: 20 Packs/Tins Daily: 0.2 - Caffeine Use Caffeine Use: Reports: Coffee, Tea - Alcohol Use Alcohol Use History: Yes Alcohol Use Frequency: Socially - Recreational Drug Use Recreational Drug Use: Yes Drug Use in Last 12 Months: Yes Recreational Drug Type: Reports: Marijuana/Hashish (last smoked New Year's 2019) - Living Situation & Occupation Living situation: Reports: , with Spouse Occupation: Employed ([employer] at [email or web address]) ED ROS GENERAL - Review of Systems Review Of Systems: Comprehensive ROS is negative, except as noted in HPI. ED EXAM GENERAL NO PERIP PULSE - Physical Exam Exam: See Below Exam Limited By: No Limitations General Appearance: Alert, WD/WN, No Apparent Distress Eye Exam: Bilateral Eye: EOMI, Normal Inspection Ears: Normal External Exam, Hearing Grossly Normal Nose: Normal Inspection Throat/Mouth: Normal Inspection, Normal Lips, Normal Voice, No Airway Compromise Head: Atraumatic, Normocephalic Neck: Normal Inspection, Full Range of Motion Respiratory/Chest: No Respiratory Distress, Lungs Clear, Normal Breath Sounds, No Accessory Muscle Use. No: Decreased Breath Sounds, Crackles, Rhonchi, Wheezing, Stridor, Prolonged Expiration Cardiovascular: Normal Peripheral Pulses, Regular Rate, Rhythm, No Edema, No Gallop, No JVD, No Murmur, No Rub GI/Abdominal: Normal Bowel Sounds, Soft, Non-Tender, No Organomegaly, No Distention, No Abnormal Bruit, No Mass (Female) Exam: Deferred Rectal (Female) Exam: Deferred Back Exam: Normal Inspection, Full Range of Motion, NT Extremities: Normal Inspection, Normal Range of Motion, No Pedal Edema, Normal Capillary Refill Neurological: Alert, Oriented, Normal Cognition, No Motor/Sensory Deficits Psychiatric: Anxious Skin Exam: Warm, Dry, Intact, Normal Color, No Rash EKG INTERPRETATION EKG Date: 10/01/19 Time: 03:24 Rhythm: NSR Rate (Beats/Min): 72 [place]: Normal P-Wave: Present QRS: Normal ST-T: Normal QT: Normal Comparison: NA - No Prior EKG Course - Vital Signs Last Recorded V/S: Last Vital Signs Temp 37.0 C 10/01/19 02:28 Pulse 90 10/01/19 02:28 Resp 25 H 10/01/19 02:28 BP 145/96 H 10/01/19 02:28 Pulse Ox 97 10/01/19 02:28 - Orders/Labs/Meds Orders: Active Orders 24 hr Category Date Time Status EKG Documentation Completion [RC] STAT Care 10/01/19 02:52 Active Influenza Vaccine Charge [RC] .DISCHARGE Care 10/01/19 02:36 Active Chest 2V [CR] Stat Exams 10/01/19 02:51 Taken CULTURE BLOOD [BC] Stat Lab 10/01/19 02:54 Ordered CULTURE BLOOD [BC] Stat Lab 10/01/19 03:15 Received Blood Culture x2 Reflex Set [OM.PC] Stat Oth 10/01/19 02:53 Ordered Labs: Laboratory Tests 10/01/19 10/01/19 10/01/19 Range/Units 03:05 03:05 03:05 WBC 6.52 (3.98-10.04) K/mm3 RBC 4.02 (3.98-5.22) M/mm3 Hgb 13.0 (11.2-15.7) gm/dl Hct 37.4 (34.1-44.9) % MCV 93.0 (79.4-94.8) fl MCH 32.3 H (25.6-32.2) pg MCHC 34.8 (32.2-35.5) g/dl RDW Std Deviation 40.8 (36.4-46.3) fL Plt Count 282 (182-369) K/mm3 MPV 9.3 L (9.4-12.3) fl Neutrophils % (Manual) 50 (40-60) % Band Neutrophils % 0 (0-10) % Lymphocytes % (Manual) 33 (20-40) % Atypical Lymphs % 0 % Monocytes % (Manual) 10 (2-10) % Eosinophils % (Manual) 6 H (0.7-5.8) % Basophils % (Manual) 1 (0.1-1.2) Platelet Estimate Adequate RBC Morph Comment Normal Puncture Site ABG pH (7.35-7.45) ABG pCO2 (35.0-45.0) mmHg ABG HCO3 (22.0-26.0) meq/L ABG O2 Saturation (96.0-97.0) % ABG Base Excess (-2-2.0) O2 Delivery Device FiO2 (21.00-100.00) % Sodium 142 (136-145) mEq/L Potassium 3.8 (3.5-5.1) mEq/L Chloride 104 (98-107) mEq/L Carbon Dioxide 24 (21-32) mEq/L Anion Gap 17.8 H (5-15) BUN 8 (7-18) mg/dL Creatinine 0.6 (0.55-1.02) mg/dL Est Cr Clr Drug Dosing 122.51 mL/min Estimated GFR (MDRD) > 60 (>60) mL/min BUN/Creatinine Ratio 13.3 L (14-18) Glucose 206 H (74-106) mg/dL POC Glucose (70-105) mg/dL Lactic Acid 1.0 (0.4-2.0) mmol/L Calcium 8.6 (8.5-10.1) mg/dL Phosphorus 5.3 H (2.6-4.7) mg/dL Magnesium 1.5 L (1.8-2.4) mg/dl Total Bilirubin 0.2 (0.2-1.0) mg/dL AST 93 H (15-37) U/L ALT 95 H (14-59) U/L Alkaline Phosphatase 75 (46-116) U/L Total Protein 6.7 (6.4-8.2) g/dl Albumin 3.4 (3.4-5.0) g/dl Globulin 3.3 gm/dL Albumin/Globulin Ratio 1.0 (1-2) Urine Color (Yellow) Urine Appearance (Clear) Urine pH (5.0-8.0) Ur Specific [place] (1.005-1.030) Urine Protein (Negative) Urine Glucose (UA) (Negative) Urine Ketones (Negative) Urine Occult Blood (Negative) Urine Nitrite (Negative) Urine Bilirubin (Negative) Urine Urobilinogen (0.2-1.0) Ur Leukocyte Esterase (Negative) Urine RBC (0-5) /hpf Urine WBC (0-5) /hpf Ur Epithelial Cells (0-5) /hpf Urine Bacteria (FEW) /hpf Urine Mucus (FEW) /hpf Urine HCG, Qual (NEGATIVE) Urine Opiates Screen (GUVWYV=138) Ur Buprenorphine Scrn (CUTOFF=10) Ur Oxycodone Screen (KYD1SV=203) Urine Methadone Screen (AAMZBS=584) Ur Propoxyphene Screen (XNGJVO=229) Ur Barbiturates Screen (KFZBBD=486) Ur Tricyclics Screen (GIBRHB=860) Ur Phencyclidine Scrn (CUTOFF=25) Ur Amphetamine Screen (OACQGJ=333) U Methamphetamines Scrn (BBWURO=122) U Benzodiazepines Scrn (TYFJKV=114) U Cocaine Metab Screen (ZFUXJA=620) U Marijuana (THC) Screen (CUTOFF=50) Ketones (0.0-0.3) mM 10/01/19 10/01/19 10/01/19 Range/Units 03:05 03:07 03:07 WBC (3.98-10.04) K/mm3 RBC (3.98-5.22) M/mm3 Hgb (11.2-15.7) gm/dl Hct (34.1-44.9) % MCV (79.4-94.8) fl MCH (25.6-32.2) pg MCHC (32.2-35.5) g/dl RDW Std Deviation (36.4-46.3) fL Plt Count (182-369) K/mm3 MPV (9.4-12.3) fl Neutrophils % (Manual) (40-60) % Band Neutrophils % (0-10) % Lymphocytes % (Manual) (20-40) % Atypical Lymphs % % Monocytes % (Manual) (2-10) % Eosinophils % (Manual) (0.7-5.8) % Basophils % (Manual) (0.1-1.2) Platelet Estimate RBC Morph Comment Puncture Site ABG pH (7.35-7.45) ABG pCO2 (35.0-45.0) mmHg ABG HCO3 (22.0-26.0) meq/L ABG O2 Saturation (96.0-97.0) % ABG Base Excess (-2-2.0) O2 Delivery Device FiO2 (21.00-100.00) % Sodium (136-145) mEq/L Potassium (3.5-5.1) mEq/L Chloride (98-107) mEq/L Carbon Dioxide (21-32) mEq/L Anion Gap (5-15) BUN (7-18) mg/dL Creatinine (0.55-1.02) mg/dL Est Cr Clr Drug Dosing mL/min Estimated GFR (MDRD) (>60) mL/min BUN/Creatinine Ratio (14-18) Glucose (74-106) mg/dL POC Glucose (70-105) mg/dL Lactic Acid (0.4-2.0) mmol/L Calcium (8.5-10.1) mg/dL Phosphorus (2.6-4.7) mg/dL Magnesium (1.8-2.4) mg/dl Total Bilirubin (0.2-1.0) mg/dL AST (15-37) U/L ALT (14-59) U/L Alkaline Phosphatase (46-116) U/L Total Protein (6.4-8.2) g/dl Albumin (3.4-5.0) g/dl Globulin gm/dL Albumin/Globulin Ratio (1-2) Urine Color Yellow (Yellow) Urine Appearance Clear (Clear) Urine pH 5.5 (5.0-8.0) Ur Specific [place] > or = 1.030 (1.005-1.030) Urine Protein Negative (Negative) Urine Glucose (UA) Negative (Negative) Urine Ketones Trace H (Negative) Urine Occult Blood Negative (Negative) Urine Nitrite Negative (Negative) Urine Bilirubin Negative (Negative) Urine Urobilinogen 0.2 (0.2-1.0) Ur Leukocyte Esterase Negative (Negative) Urine RBC 0-5 (0-5) /hpf Urine WBC 0-5 (0-5) /hpf Ur Epithelial Cells 0-5 (0-5) /hpf Urine Bacteria Few (FEW) /hpf Urine Mucus Moderate H (FEW) /hpf Urine HCG, Qual Negative (NEGATIVE) Urine Opiates Screen (SQWYYV=568) Ur Buprenorphine Scrn (CUTOFF=10) Ur Oxycodone Screen (DAM2LX=820) Urine Methadone Screen (PPHXMY=185) Ur Propoxyphene Screen (VCIXFA=590) Ur Barbiturates Screen (GGMGTJ=144) Ur Tricyclics Screen (XQINHR=227) Ur Phencyclidine Scrn (CUTOFF=25) Ur Amphetamine Screen (QEOVUI=390) U Methamphetamines Scrn (XPELBU=777) U Benzodiazepines Scrn (CIWBHT=679) U Cocaine Metab Screen (HQMETZ=192) U Marijuana (THC) Screen (CUTOFF=50) Ketones 0.32 (0.0-0.3) mM 10/01/19 10/01/19 10/01/19 Range/Units 03:07 03:30 03:30 WBC (3.98-10.04) K/mm3 RBC (3.98-5.22) M/mm3 Hgb (11.2-15.7) gm/dl Hct (34.1-44.9) % MCV (79.4-94.8) fl MCH (25.6-32.2) pg MCHC (32.2-35.5) g/dl RDW Std Deviation (36.4-46.3) fL Plt Count (182-369) K/mm3 MPV (9.4-12.3) fl Neutrophils % (Manual) (40-60) % Band Neutrophils % (0-10) % Lymphocytes % (Manual) (20-40) % Atypical Lymphs % % Monocytes % (Manual) (2-10) % Eosinophils % (Manual) (0.7-5.8) % Basophils % (Manual) (0.1-1.2) Platelet Estimate RBC Morph Comment Puncture Site Lt brachial ABG pH 7.41 (7.35-7.45) ABG pCO2 40.1 (35.0-45.0) mmHg ABG HCO3 24.8 (22.0-26.0) meq/L ABG O2 Saturation 96.4 (96.0-97.0) % ABG Base Excess 0.7 (-2-2.0) O2 Delivery Device Room air FiO2 21.00 (21.00-100.00) % Sodium (136-145) mEq/L Potassium (3.5-5.1) mEq/L Chloride (98-107) mEq/L Carbon Dioxide (21-32) mEq/L Anion Gap (5-15) BUN (7-18) mg/dL Creatinine (0.55-1.02) mg/dL Est Cr Clr Drug Dosing mL/min Estimated GFR (MDRD) (>60) mL/min BUN/Creatinine Ratio (14-18) Glucose (74-106) mg/dL POC Glucose 185 H (70-105) mg/dL Lactic Acid (0.4-2.0) mmol/L Calcium (8.5-10.1) mg/dL Phosphorus (2.6-4.7) mg/dL Magnesium (1.8-2.4) mg/dl Total Bilirubin (0.2-1.0) mg/dL AST (15-37) U/L ALT (14-59) U/L Alkaline Phosphatase (46-116) U/L Total Protein (6.4-8.2) g/dl Albumin (3.4-5.0) g/dl Globulin gm/dL Albumin/Globulin Ratio (1-2) Urine Color (Yellow) Urine Appearance (Clear) Urine pH (5.0-8.0) Ur Specific [place] (1.005-1.030) Urine Protein (Negative) Urine Glucose (UA) (Negative) Urine Ketones (Negative) Urine Occult Blood (Negative) Urine Nitrite (Negative) Urine Bilirubin (Negative) Urine Urobilinogen (0.2-1.0) Ur Leukocyte Esterase (Negative) Urine RBC (0-5) /hpf Urine WBC (0-5) /hpf Ur Epithelial Cells (0-5) /hpf Urine Bacteria (FEW) /hpf Urine Mucus (FEW) /hpf Urine HCG, Qual (NEGATIVE) Urine Opiates Screen Negative (WELCUO=275) Ur Buprenorphine Scrn Negative (CUTOFF=10) Ur Oxycodone Screen Negative (SFQ6TR=445) Urine Methadone Screen Negative (ITOYQG=436) Ur Propoxyphene Screen Negative (NPAWLM=482) Ur Barbiturates Screen Negative (FHWHZJ=863) Ur Tricyclics Screen Negative (VASWZZ=167) Ur Phencyclidine Scrn Negative (CUTOFF=25) Ur Amphetamine Screen Negative (ZGJERC=227) U Methamphetamines Scrn Negative (LIEZEM=372) U Benzodiazepines Scrn Negative (DUUBCC=407) U Cocaine Metab Screen Negative (JKZFCE=748) U Marijuana (THC) Screen Negative (CUTOFF=50) Ketones (0.0-0.3) mM Meds: Medications Discontinued Medications Generic Name Dose Route Start Last Admin Trade Name Freq PRN Reason Stop Dose Admin Insulin Human Regular 100 unit 100 mls @ 6.66 mls/hr 10/01/19 03:00 / Sodium Chloride IV TITRATE NAHID Protocol 0.1 UNITS/KG/HR Lactated Ringer's 1,000 mls @ 999 mls/hr 10/01/19 02:54 10/01/19 03:42 Ringers, Lactated IV 10/01/19 03:54 999 mls/hr .BOLUS ONE Administration Magnesium Sulfate 2 gm/ Premix 50 mls @ 50 mls/hr 10/01/19 04:05 10/01/19 04: 15 IV 10/01/19 05:04 50 mls/hr ONETIME ONE Administration Ibuprofen 600 mg 10/01/19 04:07 10/01/19 04:18 Motrin PO 10/01/19 04:08 600 mg ONETIME ONE Administration Influenza Virus Vaccine 1 each 10/01/19 02:36 Pharmacy To Dose - Influenza Vaccine IM 10/01/19 02:37 ONETIME ONE Influenza Virus Vaccine 60 mcg 10/01/19 03:00 10/01/19 04:19 Fluzone Quad [id number] Syringe IM 10/01/19 03:01 60 mcg .ONCE ONE Administration - Re-Assessments/Exams Free Text/Narrative Re-Assessment/Exam: 10/01/19 02:56 The patient's right upper extremity and left leg numbness is likely due to peripheral neuropathy related to her uncontrolled diabetes. It is possible that the patient is in DKA, although I don't smell ketones on examination. Nevertheless, I have ordered an extensive workup to look for an infection, and in the meantime, the patient will be treated with high-volume lactated Ringer's and an insulin drip. 10/01/19 03:45 Notified by Belkis DUARTE and that the patient's Accu-Chek is only 185. Further, the patient is requesting pain medication. The insulin drip has not yet been started ; I have canceled it. 10/01/19 03:47 The patient's CBC is unremarkable. Her CMP is remarkable for an anion gap slightly elevated at 17.8, with a bicarbonate normal at 24. Her blood glucose is elevated at 206. Her AST/ALT are mildly elevated at 93/95. The remainder of her CMP is unremarkable. Her magnesium is depressed at 1.5. Her phosphate is elevated at 5.3. Her ABG is completely normal. Her urinalysis is unremarkable. Her urine test is negative. 2-view chest radiograph appears to be grossly normal. The cardiac silhouette is within normal limits. No pulmonary vascular congestion. No pleural effusions. No focal infiltrate. No pneumothorax. Formal read per the Radiologist pending. The lactic acid level and serum ketones are still pending. Clearly, the patient is not suffering from hyperglycemia, and her labs are not consistent with her recently having been hyperglycemic. Due to a concern of drug -seeking behavior, I have added a urine drug screen. The patient will be given a 2 g Mg-rider. 10/01/19 04:06 The patient's lactic acid level has returned normal at 1.0. Her serum ketones are slightly elevated at 0.32. The patient's slightly elevated serum ketones are consistent with mild ketosis, not ketoacidosis. 10/01/19 04:29 The urine drug screen is completely negative. 10/01/19 05:10 The patient's magnesium rider has finished infusing. I will discharge her home and have her follow-up with her PCP. Departure - Departure Time of Disposition: 05:13 Disposition: Home, Self-Care 01 Condition: Good Clinical Impression: Paresthesia of right upper extremity, Paresthesia of left leg, Hypomagnesemia - Discharge Information *PRESCRIPTION DRUG MONITORING PROGRAM REVIEWED*: Yes *COPY OF PRESCRIPTION DRUG MONITORING REPORT IN PATIENT ALIS: No Referrals: Lea Saenz NP [Primary Care Provider] - Forms: ED Department Discharge Additional Instructions: You were seen in the emergency room for numbness of your entire right upper extremity and left leg, with a report of your blood glucose being in the 500 to 600 range. Workup in the ER included blood work, 2 sets of blood cultures, an arterial blood gas, a urinalysis, a urine drug screen, a urine test, a chest x- ray, and an ECG. Your blood glucose was found to be modestly elevated at 206. Your magnesium level was found to be depressed at 1.5. The remainder of your workup was unremarkable. You were given IV fluid and IV magnesium in the ER. The cause of your right upper extremity and left leg numbness is not known, but may be related to your diabetes. No vascular abnormality was found. We recommend that you follow-up with your PCP, Lea Saenz NP, for further evaluation. If any other problems, please do not hesitate to return to the ER. Sepsis Event Note - Evaluation Sepsis Screening Result: No Definite Risk - Focused Exam Vital Signs: Vital Signs Temp Pulse Resp BP Pulse Ox 10/01/19 02:28 37.0 C 90 25 H 145/96 H 97 Date Exam was Performed: 10/01/19 Time Exam was Performed: 05:18 - My Orders Last 24 Hours: My Active Orders 10/01/19 02:36 Influenza Vaccine Charge [RC] .DISCHARGE 10/01/19 02:51 Chest 2V [CR] Stat 10/01/19 02:52 EKG Documentation Completion [RC] STAT 10/01/19 02:53 Blood Culture x2 Reflex Set [OM.PC] Stat 10/01/19 02:54 CULTURE BLOOD [BC] Stat 10/01/19 03:15 CULTURE BLOOD [BC] Stat - Assessment/Plan Last 24 Hours: My Active Orders 10/01/19 02:36 Influenza Vaccine Charge [RC] .DISCHARGE 10/01/19 02:51 Chest 2V [CR] Stat 10/01/19 02:52 EKG Documentation Completion [RC] STAT 10/01/19 02:53 Blood Culture x2 Reflex Set [OM.PC] Stat 10/01/19 02:54 CULTURE BLOOD [BC] Stat 10/01/19 03:15 CULTURE BLOOD [BC] Stat
[2019-10-01] MEDS ORDERED: Magnesium Sulfate/Water 2 GM in Premix Bag 1 BAG IV ONE (04:05)
[2019-10-01] MEDS ORDERED: Ibuprofen 600 MG Tab PO ONE (04:07)
--- NOTE | 2019-10-01 07:22 | CR ---
Chest: Two views of the chest were obtained. Comparison: No prior chest imaging. Heart size and mediastinum are normal. Lungs are clear. Bony structures are unremarkable. Impression: 1. Nothing acute is seen on two-view chest x-ray. Diagnostic code #1 This report was dictated in [place] Standard Time
== END 2019-10-01 05:37 | disposition home or self-care (01) ==
LOC: JD.ED 02:20
DX: E83.42 Hypomagnesemia (principal); E10.9 Type 1 diabetes mellitus without complications; F17.210 Nicotine dependence, cigarettes, uncomplicated; Z88.0 Allergy status to penicillin
CPT/HCPCS: 36415; 36600; 71046; 80053; 80306; 81001; 81025; 82009; 82803; 82962; 83605; 83735; 84100; 85007; 85027; 87040; 90471; 90686; 93005; 96361; 96365; 99284; A9270; J3475; J7120; 93010; G0008